=== PATIENT | female | born 1940 | race Caucasian/White ===

== ENCOUNTER → 2016-09-22 | Outpatient (CLI) | payer MEDICARE, BC ==
--- NOTE | 2016-09-23 13:55 | MM ---
Reason for exam: screening (asymptomatic). Last mammogram was performed 1 year and 1 month ago. History: Patient is postmenopausal. Family history of breast cancer in maternal cousin at age 40. Benign right US cyst aspiration of the right breast, August 25, 2005. Benign US right core biopsy of the right breast, August 25, 2005. Excisional biopsy of the left breast, 1993. Excisional biopsy of the left breast, 1968. Cyst aspiration of the right breast. Took estrogen for 12 years beginning at age 55. Physical Findings: A clinical breast exam by your physician is recommended on an annual basis and results should be correlated with mammographic findings. MG 3D Screening Mammo W/Cad Bilateral CC and MLO view(s) were taken. Prior study comparison: August 20, 2015, bilateral MG 3d screening mammo w/cad. August 13, 2014, bilateral MG screening mammo w CAD. Benign calcifications. Previous mammotome biopsy in the right breast. No significant changes when compared with prior studies. ASSESSMENT: Benign, BI-RAD 2 RECOMMENDATION: Routine screening mammogram of both breasts in 1 year.
== END | disposition home or self-care (01) ==
LOC: RADMAMWWP 15:02
PROVIDERS: ATTEND Internal Medicine
DX: Z12.31 Encounter for screening mammogram for malignant neoplasm of breast (principal)
CPT/HCPCS: 77063; G0202

== ENCOUNTER → 2017-10-19 | Outpatient (CLI) | payer MEDICARE, BC ==
--- NOTE | 2017-10-20 14:23 | MM ---
Reason for exam: screening (asymptomatic). Last mammogram was performed 1 year and 1 month ago. History: Patient is postmenopausal. Family history of breast cancer in maternal cousin at age 40. Benign right US cyst aspiration of the right breast, August 25, 2005. Benign US right core biopsy of the right breast, August 25, 2005. Excisional biopsy of the left breast, 1993. Excisional biopsy of the left breast, 1968. Cyst aspiration of the right breast. Took estrogen for 12 years beginning at age 55. Physical Findings: A clinical breast exam by your physician is recommended on an annual basis and results should be correlated with mammographic findings. MG 3D Screening Mammo W/Cad Bilateral CC and MLO view(s) were taken. Prior study comparison: September 22, 2016, bilateral MG 3d screening mammo w/cad. August 20, 2015, bilateral MG 3d screening mammo w/cad. The breast tissue is heterogeneously dense. This may lower the sensitivity of mammography. No suspicious abnormality. Right biopsy marker. Stable post surgical change on the left. No significant changes when compared with prior studies. ASSESSMENT: Benign, BI-RAD 2 RECOMMENDATION: Routine screening mammogram of both breasts in 1 year.
== END | disposition home or self-care (01) ==
LOC: RADMAMWWP 14:48
PROVIDERS: ATTEND Internal Medicine
DX: Z12.31 Encounter for screening mammogram for malignant neoplasm of breast (principal)
CPT/HCPCS: 77063; 77067

== ENCOUNTER 2018-05-12 18:52 | Emergency (ER) | payer MEDICARE, BC ==
--- NOTE | 2018-05-12 20:51 | ED ---
Abdominal Pain HPI <Deacon Sinclair - Last Filed: 05/12/18 23:27> - General Source: patient Mode of arrival: ambulatory Limitations: no limitations <Jessika Robertson - Last Filed: 05/13/18 17:20> - General Chief Complaint: Abdominal Pain Stated Complaint: ABDOMINAL PAIN Time Seen by Provider: 05/12/18 20:48 - History of Present Illness Initial Comments: 77-year-old female with no significant past medical history of present today for chief complaint of left sided abdominal pain. Patient states that for the past 2 months she has had left-sided abdominal pain that is piercing and throbbing she states is all the time however it increases with movement patient states that night she does not seem to notice any symptoms. She denies any nausea, vomiting, diarrhea, melena, hematochezia. Patient denies any bloating, fever, chills, nausea, vomiting, chest pain, shortness of breath, dyspnea on exertion, cough, back pain, hemoptysis, LE edema, orthopnea. Patient states that her last colonoscopy she was told she did not need to come in for another 10 years that it was clean. Pt denies vaginal discharge, bleeding. Pt denies urgency, frequency, dysuria, hematuria. Patient denies history of kidney stones. She states she has been evaluated by her primary care provider who prescribed Flagyl given concern for possible diverticulitis. Patient went to urgent care today for further evaluation and was told to come to emergency department. Upon arrival pt well appearing, there are no sign of distress or discomfort. (Jessika Robertson) - Related Data Home Medications Medication Instructions Recorded Confirmed Brimonidine Tartrate [Alphagan P 1 drop BOTH EYES BID 02/10/16 05/12/18 0.2% Ophth Soln] Atorvastatin [Lipitor] 20 mg PO HS 05/12/18 05/12/18 Previous Rx's Medication Instructions Recorded Dicyclomine [Bentyl] 10 mg PO TID 4 Days #12 capsule 05/12/18 Allergies Allergy/AdvReac Type Severity Reaction Status Date / Time metronidazole [From Flagyl] Allergy Itching Verified 05/12/18 20:30 morphine AdvReac Vomiting Verified 05/12/18 20:30 Sulfa (Sulfonamide AdvReac headache Verified 05/12/18 20:30 Antibiotics) Review of Systems ROS Other: All systems not noted in ROS Statement are negative. <Deacon Sinclair - Last Filed: 05/12/18 23:27> ROS Other: All systems not noted in ROS Statement are negative. Constitutional: Denies: fever, chills Eyes: Denies: eye pain ENT: Denies: ear pain, throat pain Respiratory: Denies: cough, dyspnea, wheezes, hemoptysis Cardiovascular: Denies: chest pain, palpitations, dyspnea on exertion Endocrine: Denies: fatigue Gastrointestinal: Reports: abdominal pain. Denies: nausea, vomiting, diarrhea, constipation, hematemesis, melena, hematochezia Genitourinary: Denies: frequency, hematuria, discharge, abnormal menses Musculoskeletal: Denies: back pain Skin: Denies: rash, lesions Neurological: Denies: headache, weakness, numbness, paresthesias, confusion <Jessika Robertson - Last Filed: 05/13/18 17:20> ROS Statement: Those systems with pertinent positive or pertinent negative responses have been documented in the HPI. Past Medical History Past Medical History: Hyperlipidemia Additional Past Medical History / Comment(s): spinal stenosis, bradycardia History of Any Multi-Drug Resistant Organisms: None Reported Past Surgical History: Appendectomy, Hysterectomy, Tonsillectomy Additional Past Surgical History / Comment(s): varicose vein removal, bilateral cataract extraction, breast lump removal. bilateral carpal tunnel release. Past Anesthesia/Blood Transfusion Reactions: Postoperative Nausea & Vomiting ( PONV) Additional Past Anesthesia/Blood Transfusion Reaction / Comment(s): patient had anesthesia on 02/10/16 for a cataract removal. afterwards became lightheaded, nauseous, and was found to be bradycardic. Past Psychological History: No Psychological Hx Reported Smoking Status: Current every day smoker Past Alcohol Use History: None Reported Past Drug Use History: None Reported - Past Family History Father Family Medical History: AICD/Pacemaker, Congestive Heart Failure (CHF), COPD, Hyperlipidemia, Hypertension Additional Family Medical History / Comment(s): lived until age 95. CABG, pacemaker, seizures, neuropathy Mother Family Medical History: Dementia, Hyperlipidemia, Hypertension, Osteoarthritis ( OA) Additional Family Medical History / Comment(s): lived until age 90. CABG, glaucoma Brother(s) Family Medical History: Hyperlipidemia Sister(s) Family Medical History: CVA/TIA, Hyperlipidemia Additional Family Medical History / Comment(s): loop recorder <Jessika Robertson - Last Filed: 05/13/18 17:20> General Exam <Deacon Sinclair - Last Filed: 05/12/18 23:27> Limitations: no limitations <Jessika Robertson - Last Filed: 05/13/18 17:20> - General Exam Comments Initial Comments: General: The patient is awake and alert, in no distress, and does not appear acutely ill. Eye: Pupils are equal, round and reactive to light, extra-ocular movements are intact. No nystagmus. There is normal conjunctiva bilaterally. No signs of icterus. Ears, nose, mouth and throat: There are moist mucous membranes and no oral lesions. Neck: The neck is supple, there is no tenderness or JVD. Cardiovascular: There is a regular rate and rhythm. No murmur, rub or gallop is appreciated. Respiratory: Lungs are clear to auscultation, respirations are non-labored, breath sounds are equal. No wheezes, stridor, rales, or rhonchi. Gastrointestinal: No noted diaphoresis, jaundice, pallor, protecting postures or squirming. Symmetrical pigmentation of abdomen without signs of inflammation. Scarring noted on lower pelvic region. Striae. Umbilicus mildline, inverted without swelling. No dilated veins. Abdomen contour obese, no noted abdominal distention. No visible masses. No peristalsis, aortic pulsations, or ventral hernia. Bowel sounds audible in all 4 quadrants, unremarkable. No friction rubs or venous hums. No epigastic, hepatic or abdominal bruits. Pt admits to mid discomfort with deep palpation along left side of abdomen. Remainder benign.. Liver edge, not palpable. Spleen edge, right and left kidney not palpable. Superior bladder margin non-tender. Special Testing: Negative Bevington, Rovsing, McBurney, Loren, cutaneous hyperesthesia. Iliopsoas and obturator tests negative bilaterally. Negative Heel Jar test/ nidia sign. No CVA tenderness. [Digital rectal exam deferred.] Negative mayo turners or cullens sign Musculoskeletal: Normal ROM, no tenderness. Strength 5/5. Sensation intact. Radial pulses equal bilaterally 2+. Neurological: A&O x 3. CN II-XII intact, There are no obvious motor or sensory deficits. Coordination appears grossly intact. Speech is normal. Skin: Skin is warm and dry and no rashes or lesions are noted. Psychiatric: Cooperative, appropriate mood & affect, normal judgment. (Jessika Robertson) Course <Deacon Sinclair - Last Filed: 05/12/18 23:27> <Jessika Robertson - Last Filed: 05/13/18 17:20> Vital Signs 05/12/18 05/12/18 05/12/18 19:13 21:34 22:00 Temperature 98.1 F Pulse Rate 105 H 99 72 Respiratory 20 18 18 Rate Blood Pressure 137/66 158/81 138/74 O2 Sat by Pulse 95 95 95 Oximetry 05/12/18 23:46 Temperature 97.9 F Pulse Rate 96 Respiratory 18 Rate Blood Pressure 156/83 O2 Sat by Pulse 95 Oximetry - Reevaluation(s) Reevaluation #1: 05/12/18 23:27 PA supervision: I proceeded [id number] evaluation the patient she is moving complaining of left lower quadrant and left flank anterior abdominal pain for the past 2 months. It occurs later in the day usually. Not really associated with food some movement makes it worse. She's had no dysuria hematuria no constipation or diarrhea. She has a prior history of hysterectomy and appendectomy this was many years ago. The workup thus far is negative for any acute processes. Spastic colon is considered. Patient will be discharged and follow-up with her doctor. Her last colonoscopy was 9 years ago she is pending one in the not so distant future. She is return when necessary. I do agree with the current assessment and plan. (Deacon Sinclair) Medical Decision Making - Lab Data Result diagrams: 05/12/18 21:25 05/12/18 21:25 <Deacon Sinclair - Last Filed: 05/12/18 23:27> - Lab Data Result diagrams: 05/12/18 21:25 05/12/18 21:25 <Jessika Robertson - Last Filed: 05/13/18 17:20> - Medical Decision Making Laboratory studies unremarkable. Abdominal exam revealed mild discomfort however no signs of distress. Given age ACS labs ordered, negative at this time. EKG no new concerning findings. CT abdomen pelvic (-). CXR (-). Patient appears well. Given length of the gout pain 2 months I do not feel this acute intra-abdominal process. I had patient evaluated in person by attending physician. He agrees the patient is stable for discharge. He recommended Benyl for possible motility disorder. Pt is agreeable with plan and discharge. We recommended further outpatient f/u for abdominal pain including possible. Gastroenterology referral from primary provider. Patient agreeable with plan, states she is comfortable with discharge. Patient denies any pain during stay. Patient was discharged in stable condition appearing well. All return parameters discussed at length with patient, who verbalized understanding. All questions answered to the best of my ability prior to discharge. (Jessika Robertson) - Lab Data Lab Results 05/12/18 05/12/18 05/12/18 Range/Units 21:25 21:25 21:25 WBC 4.8 (3.8-10.6) k/uL RBC 4.76 (3.80-5.40) m/uL Hgb 14.1 (11.4-16.0) gm/dL Hct 41.8 (34.0-46.0) % MCV 87.8 (80.0-100.0) fL MCH 29.7 (25.0-35.0) pg MCHC 33.8 (31.0-37.0) g/dL RDW 13.2 (11.5-15.5) % Plt Count 201 (150-450) k/uL Neutrophils % 40 % Lymphocytes % 46 % Monocytes % 8 % Eosinophils % 2 % Basophils % 1 % Neutrophils # 1.9 (1.3-7.7) k/uL Lymphocytes # 2.2 (1.0-4.8) k/uL Monocytes # 0.4 (0-1.0) k/uL Eosinophils # 0.1 (0-0.7) k/uL Basophils # 0.0 (0-0.2) k/uL Sodium 142 (137-145) mmol/L Potassium 4.3 (3.5-5.1) mmol/L Chloride 110 H (98-107) mmol/L Carbon Dioxide 24 (22-30) mmol/L Anion Gap 8 mmol/L BUN 18 H (7-17) mg/dL Creatinine 0.75 (0.52-1.04) mg/dL Est GFR (CKD-EPI)AfAm 88 (>60 ml/min/1.73 sqM) Est GFR (CKD-EPI)NonAf 77 (>60 ml/min/1.73 sqM) Glucose 98 (74-99) mg/dL Plasma Lactic Acid Yash 1.1 (0.7-2.0) mmol/L Calcium 9.3 (8.4-10.2) mg/dL Total Bilirubin 0.2 (0.2-1.3) mg/dL AST 49 H (14-36) U/L ALT 53 H (9-52) U/L Alkaline Phosphatase 97 (38-126) U/L Troponin I (0.000-0.034) ng/mL Total Protein 6.8 (6.3-8.2) g/dL Albumin 3.9 (3.5-5.0) g/dL Amylase 63 (30-110) U/L Lipase 128 (23-300) U/L Urine Color Urine Appearance (Clear) Urine pH (5.0-8.0) Ur Specific Otley (1.001-1.035) Urine Protein (Negative) Urine Glucose (UA) (Negative) Urine Ketones (Negative) Urine Blood (Negative) Urine Nitrite (Negative) Urine Bilirubin (Negative) Urine Urobilinogen (<2.0) mg/dL Ur Leukocyte Esterase (Negative) Urine RBC (0-5) /hpf Urine WBC (0-5) /hpf Ur Squamous Epith Cells (0-4) /hpf Hyaline Casts (0-2) /lpf Urine Mucus (None) /hpf 05/12/18 05/12/18 Range/Units 21:25 21:25 WBC (3.8-10.6) k/uL RBC (3.80-5.40) m/uL Hgb (11.4-16.0) gm/dL Hct (34.0-46.0) % MCV (80.0-100.0) fL MCH (25.0-35.0) pg MCHC (31.0-37.0) g/dL RDW (11.5-15.5) % Plt Count (150-450) k/uL Neutrophils % % Lymphocytes % % Monocytes % % Eosinophils % % Basophils % % Neutrophils # (1.3-7.7) k/uL Lymphocytes # (1.0-4.8) k/uL Monocytes # (0-1.0) k/uL Eosinophils # (0-0.7) k/uL Basophils # (0-0.2) k/uL Sodium (137-145) mmol/L Potassium (3.5-5.1) mmol/L Chloride (98-107) mmol/L Carbon Dioxide (22-30) mmol/L Anion Gap mmol/L BUN (7-17) mg/dL Creatinine (0.52-1.04) mg/dL Est GFR (CKD-EPI)AfAm (>60 ml/min/1.73 sqM) Est GFR (CKD-EPI)NonAf (>60 ml/min/1.73 sqM) Glucose (74-99) mg/dL Plasma Lactic Acid Yash (0.7-2.0) mmol/L Calcium (8.4-10.2) mg/dL Total Bilirubin (0.2-1.3) mg/dL AST (14-36) U/L ALT (9-52) U/L Alkaline Phosphatase (38-126) U/L Troponin I <0.012 (0.000-0.034) ng/mL Total Protein (6.3-8.2) g/dL Albumin (3.5-5.0) g/dL Amylase (30-110) U/L Lipase (23-300) U/L Urine Color Yellow Urine Appearance Cloudy H (Clear) Urine pH 5.5 (5.0-8.0) Ur Specific Otley 1.025 (1.001-1.035) Urine Protein Trace H (Negative) Urine Glucose (UA) Negative (Negative) Urine Ketones Trace H (Negative) Urine Blood Small H (Negative) Urine Nitrite Negative (Negative) Urine Bilirubin Negative (Negative) Urine Urobilinogen 2.0 (<2.0) mg/dL Ur Leukocyte Esterase Trace H (Negative) Urine RBC 7 H (0-5) /hpf Urine WBC 2 (0-5) /hpf Ur Squamous Epith Cells 2 (0-4) /hpf Hyaline Casts 11 H (0-2) /lpf Urine Mucus Few H (None) /hpf - EKG Data EKG Comments: Ventricular rate 64 bpm, SC interval 220 ms, QRS religious 122 ms QT/QTC 396/ 408 ms this is sinus rhythm with with sinus arrhythmia noted first-degree AV block. Noted left atrial enlargement, there is left axis deviation and noted left bundle branch block. EKG compared to most recent previous, no significant changes. EKG evaluated by myself as well as Dr. Deacon Sinclair. No ST elevation or depression concerning for acute green party syndrome at this time. (Jessika Robertson) Disposition <Deacon Sinclair - Last Filed: 05/12/18 23:27> Is patient prescribed a controlled substance at d/c from ED?: No Time of Disposition: 23:22 <Jessika Robertson - Last Filed: 05/13/18 17:20> Clinical Impression: Abdominal pain Disposition: HOME SELF-CARE Condition: Good Instructions: Abdominal Pain (ED) Additional Instructions: Please use medication as discussed. Please follow-up with family doctor in the next 2 days.. Please return to emergency room if the symptoms increase or worsen or for any other concerns. Prescriptions: Dicyclomine [Bentyl] 10 mg PO TID 4 Days #12 capsule Referrals: Mayur Khan MD [Primary Care Provider] - 1-2 days
[2018-05-12] MEDS ORDERED: SODIUM CHLORIDE 0.9% 1,000 ML IV SCH (21:00)
[2018-05-12 21:36] VITALS: RESP 18
[2018-05-12 21:45] LABS: Basophils % (A) 1 %; Eosinophils # (A) 0.1 k/uL (0-0.7); Eosinophils % (A) 2 %; HCT 41.8 % (34.0-46.0); HGB 14.1 gm/dL (11.4-16.0); Lymphocytes # (A) 2.2 k/uL (1.0-4.8); Lymphocytes % (A) 46 %; MCH 29.7 pg (25.0-35.0); MCHC 33.8 g/dL (31.0-37.0); MCV 87.8 fL (80.0-100.0); Mean Platelet Volume 7.5; Monocytes # (A) 0.4 k/uL (0-1.0); Monocytes % (A) 8 %; Neutrophils # (A) 1.9 k/uL (1.3-7.7); Neutrophils % (A) 40 %; Platelet Count 201 k/uL (150-450); RBC 4.76 m/uL (3.80-5.40); RDW 13.2 % (11.5-15.5); WBC 4.8 k/uL (3.8-10.6)
[2018-05-12 21:46] LABS: Appearance,Urine Cloudy (Clear); Bilirubin,Urine Negative (Negative); Blood,Urine Small (Negative); Color,Urine Yellow; Glucose,Urine (UA) Negative (Negative); Hyaline Casts,Urine 11 /lpf (0-2); Ketones,Urine Trace (Negative); Leukocyte Esterase,Urine Trace (Negative); Mucus,Urine Few /hpf; Nitrite,Urine Negative (Negative); PH, Urine 5.5 (5.0-8.0); Protein,Urine Trace (Negative); RBC,Urine 7 /hpf (0-5); Specific Gravity,Urine 1.025 (1.001-1.035); Squamous Epithelial Cell,Urine 2 /hpf (0-4)
[2018-05-12 21:52] LABS: Albumin 3.9 g/dL (3.5-5.0); Calcium 9.3 mg/dL (8.4-10.2); Potassium 4.3 mmol/L (3.5-5.1); Total Bilirubin 0.2 mg/dL (0.2-1.3); Total Protein 6.8 g/dL (6.3-8.2)
--- NOTE | 2018-05-12 22:00 | XR ---
EXAMINATION TYPE: XR chest 2V DATE OF EXAM: 05/12/2018 COMPARISON: 02/10/2016 HISTORY: Cough TECHNIQUE: Frontal and lateral views of the chest are obtained. FINDINGS: There is no heart failure nor confluent pneumonic infiltrate. Costophrenic angles are lamine r. There are chest leads. Bony thorax is intact. IMPRESSION: No active cardiopulmonary disease. No change.
--- NOTE | 2018-05-12 22:30 | CT ---
EXAMINATION TYPE: CT abdomen pelvis w con DATE OF EXAM: 05/12/2018 COMPARISON: 01/30/2011 HISTORY: Lower abdominal pain x few months. CT DLP: 551.6 mGycm Automated exposure control for dose reduction was used. TECHNIQUE: Helical acquisition of images was performed from the lung bases through the pelvis. CONTRAST: Performed without Oral Contrast and with IV Contrast, patient injected with 100ml mL of Isovue 300. FINDINGS: Lung bases are clear. There is no pleural effusion. Heart is enlarged. There is no pericardial effusi on. Liver spleen pancreas appear normal. Bile ducts are not dilated. Gallbladder appears normal. Stomach appears normal. There is no adrenal mass. Kidneys show satisfactory contrast opacification. T here is no hydronephrosis. There are right renal cortical cysts that measure 2 cm. There is no retrop eritoneal adenopathy. Abdominal aorta is atheromatous. Bladder distends smoothly. There is no inguina l hernia. There is no free fluid in the pelvis. I see no mesenteric edema or adenopathy. There is no evidence of a bowel obstruction. There are multi ple sigmoid diverticula. There is no sign of diverticulitis. There are spondylotic changes in the lum bar spine. Appendix is not seen. There is no sign of appendicitis. IMPRESSION: NO SIGN OF ACUTE ABDOMEN AND PELVIS. ENLARGED HEART. ATHEROSCLEROTIC VASCULAR DISEASE. MILD SIGMOID D IVERTICULOSIS.
[2018-05-12 23:47] VITALS: BP 156/83; PULSE 96; TEMP 97.9
== END 2018-05-12 23:47 | disposition home or self-care (01) ==
LOC: EC 18:52
DX: R10.9 Unspecified abdominal pain (principal); L90.5 Scar conditions and fibrosis of skin; I44.0 Atrioventricular block, first degree; I44.7 Left bundle-branch block, unspecified; I49.8 Other specified cardiac arrhythmias; E78.5 Hyperlipidemia, unspecified; F17.200 Nicotine dependence, unspecified, uncomplicated; Z79.899 Other long term (current) drug therapy; Z88.1 Allergy status to other antibiotic agents; Z88.5 Allergy status to narcotic agent; Z88.2 Allergy status to sulfonamides; Z90.49 Acquired absence of other specified parts of digestive tract; Z98.42 Cataract extraction status, left eye; Z98.41 Cataract extraction status, right eye
CPT/HCPCS: 36415; 93005; 80053; 82150; 83605; 83690; 84484; 85025; 81001; 71046; 74177; 99285; Q9967

== ENCOUNTER → 2018-10-27 | Outpatient (CLI) | payer MEDICARE ==
--- NOTE | 2018-10-31 09:21 | MM ---
Reason for exam: screening (asymptomatic). Last mammogram was performed 1 year ago. History: Patient is postmenopausal. Family history of breast cancer in maternal cousin at age 40. Benign right US cyst aspiration of the right breast, August 25, 2005. Benign US right core biopsy of the right breast, August 25, 2005. Excisional biopsy of the left breast, 1993. Excisional biopsy of the left breast, 1968. Cyst aspiration of the right breast. Took estrogen for 12 years beginning at age 55. Physical Findings: A clinical breast exam by your physician is recommended on an annual basis and results should be correlated with mammographic findings. MG 3D Screening Mammo W/Cad Bilateral CC and MLO view(s) were taken. Prior study comparison: October 19, 2017, bilateral MG 3d screening mammo w/cad. September 22, 2016, bilateral MG 3d screening mammo w/cad. The breast tissue is heterogeneously dense. This may lower the sensitivity of mammography. Scattered asymmetric densities are unchanged. No significant changes when compared with prior studies. ASSESSMENT: Negative, BI-RAD 1 RECOMMENDATION: Routine screening mammogram of both breasts in 1 year.
== END | disposition home or self-care (01) ==
LOC: RADMAMWWP 13:17
PROVIDERS: ATTEND Internal Medicine
DX: Z12.31 Encounter for screening mammogram for malignant neoplasm of breast (principal)
CPT/HCPCS: 77063; 77067

== ENCOUNTER → 2018-12-22 | Outpatient (CLI) | payer MEDICARE ==
[2018-12-22 17:12] LABS: African American GFR (CKD) >90 (>60 ml/min/1.73 sqM); Blood Urea Nitrogen 19 mg/dL (7-17)
--- NOTE | 2018-12-22 22:03 | CT ---
EXAMINATION TYPE: CT soft tissue neck w con DATE OF EXAM: 12/22/2018 HISTORY: Pt concerned over palpable mass near RT sternoclavicular region. Marked with BB COMPARISON: NONE CT DLP: 397 mGycm. Automated Exposure Control for Dose Reduction was Utilized. TECHNIQUE: CT scan of the neck is performed with IV Contrast, patient injected with 100 mL of Isovue 300, axial images are obtained, coronal and sagittal reformatted images are reviewed. FINDINGS: Area of patient concern marked axial image 69 just above proximal clavicle junction with sternum. Dis shade sternocleidomastoid mastoid muscle felt within normal limits without suspicious abnormality sharron red to opposite left side on coronal image 41. There is however asymmetric soft tissue thickening bel ow this versus opposite left side without bony destruction measuring 2.2 x 1.4 cm axial image 73. Thi s correlates with coronal image 41. Just above this thyroid gland is within normal limits. Airway is patent. There is mild to moderate emphysematous change visualized upper lungs. Mild plaque bilateral carotid bulb level without significant stenosis. Dominant left vertebral artery incidentally noted. No greater than 1 cm mass or adenopathy. Scattered subcentimeter lymph nodes throughout the neck bila terally. IMPRESSION: Asymmetric soft tissue near site of palpable abnormality along central margin of the righ t clavicle could reflect product of chronic inflammation or strain injury. No suspicious cortical yeni truction to suggest more sinister etiology. No suspicious mass or adenopathy otherwise identified. If this lesion continues to enlarge or become painful further imaging may be beneficial.
== END | disposition home or self-care (01) ==
LOC: RADCTMAIN 16:22
PROVIDERS: ATTEND Internal Medicine
DX: R22.1 Localized swelling, mass and lump, neck (principal)
CPT/HCPCS: 82565; 84520; 70491; 36415; Q9967

== ENCOUNTER → 2019-12-14 | Outpatient (CLI) | payer MEDICARE ==
--- NOTE | 2019-12-15 14:28 | MM ---
Reason for exam: screening (asymptomatic). Last mammogram was performed 1 year and 2 months ago. History: Patient is postmenopausal. Family history of breast cancer in maternal cousin at age 40. Benign right US cyst aspiration of the right breast, August 25, 2005. Benign US right core biopsy of the right breast, August 25, 2005. Excisional biopsy of the left breast, 1993. Excisional biopsy of the left breast, 1968. Cyst aspiration of the right breast. Took estrogen for 12 years beginning at age 55. Physical Findings: A clinical breast exam by your physician is recommended on an annual basis and results should be correlated with mammographic findings. MG 3D Screening Mammo W/Cad Bilateral CC and MLO view(s) were taken. Prior study comparison: October 27, 2018, bilateral MG 3d screening mammo w/cad. October 19, 2017, bilateral MG 3d screening mammo w/cad. The breast tissue is heterogeneously dense. This may lower the sensitivity of mammography. There is no discrete abnormality. No significant changes when compared with prior studies. ASSESSMENT: Negative, BI-RAD 1 RECOMMENDATION: Routine screening mammogram of both breasts in 1 year.
== END | disposition home or self-care (01) ==
LOC: RADMAMWWP 14:55
PROVIDERS: ATTEND Internal Medicine
DX: Z12.31 Encounter for screening mammogram for malignant neoplasm of breast (principal)
CPT/HCPCS: 77063; 77067

== ENCOUNTER 2020-04-22 12:56 | Emergency (ER) | payer MEDICARE ==
[2020-04-22 13:05] VITALS: PULSE 69; TEMP 98.5
[2020-04-22] MEDS ORDERED: MECLIZINE 12.5 MG TAB PO STA (14:23)
[2020-04-22] MEDS ORDERED: SODIUM CHLORIDE 0.9% 1,000 ML IV STA (14:23)
[2020-04-22] MEDS ORDERED: ONDANSETRON 4 MG/2 ML VIAL IVP STA (14:23)
--- NOTE | 2020-04-22 14:26 | ED ---
General Adult HPI - General Chief complaint: Nausea/Vomiting/Diarrhea Stated complaint: vomiting, elevated BP, weakness Source: patient Mode of arrival: wheelchair Limitations: no limitations - History of Present Illness Initial comments: Patient is an 79-year-old female who presents to the emergency department with reported nausea, vomiting and dizziness. Patient states she woke up this morning with sudden onset of room spinning sensation. Does admit to one history of similar in the past. Denies any head trauma. States she attempted to ambulate however was too dizzy and felt as if she kept falling. Denies any unilateral numbness or weakness. No headaches or visual changes. No speech difficulty. Denies any fevers or chills. No neck pain or stiffness. Did not t anya any medications for her symptoms. Denies any hearing changes. No previous history of strokes. Patient has been nauseated with a few episodes of nonbilious, nonbloody vomiting. No other alleviating, precipitating or modifying factors - Related Data Home Medications Medication Instructions Recorded Confirmed Atorvastatin [Lipitor] 20 mg PO HS 05/12/18 04/22/20 Brimonidine Tartrate [Alphagan P 1 drops BOTH EYES BID 04/22/20 04/22/20 0.15% Ophth Soln] Previous Rx's Medication Instructions Recorded Meclizine [Antivert] 25 mg PO TID PRN #12 tab 04/22/20 Allergies Allergy/AdvReac Type Severity Reaction Status Date / Time metronidazole [From Flagyl] Allergy Itching Verified 04/22/20 14:56 morphine AdvReac Vomiting Verified 04/22/20 14:56 Sulfa (Sulfonamide AdvReac headache Verified 04/22/20 14:56 Antibiotics) Review of Systems ROS Statement: Those systems with pertinent positive or pertinent negative responses have been documented in the HPI. ROS Other: All systems not noted in ROS Statement are negative. Past Medical History Past Medical History: Hyperlipidemia Additional Past Medical History / Comment(s): spinal stenosis, bradycardia History of Any Multi-Drug Resistant Organisms: None Reported Past Surgical History: Appendectomy, Hysterectomy, Tonsillectomy Additional Past Surgical History / Comment(s): varicose vein removal, bilateral cataract extraction, breast lump removal. bilateral carpal tunnel release. Past Anesthesia/Blood Transfusion Reactions: Postoperative Nausea & Vomiting (PONV) Additional Past Anesthesia/Blood Transfusion Reaction / Comment(s): patient had anesthesia on 02/10/16 for a cataract removal. afterwards became lightheaded, nauseous, and was found to be bradycardic. Past Psychological History: No Psychological Hx Reported Smoking Status: Current every day smoker Past Alcohol Use History: Rare Past Drug Use History: None Reported - Past Family History Father Family Medical History: AICD/Pacemaker, Congestive Heart Failure (CHF), COPD, Hyperlipidemia, Hypertension Additional Family Medical History / Comment(s): lived until age 95. CABG, pacemaker, seizures, neuropathy Mother Family Medical History: Dementia, Hyperlipidemia, Hypertension, Osteoarthritis (OA) Additional Family Medical History / Comment(s): lived until age 90. CABG, glaucoma Brother(s) Family Medical History: Hyperlipidemia Sister(s) Family Medical History: CVA/TIA, Hyperlipidemia Additional Family Medical History / Comment(s): loop recorder General Exam Limitations: no limitations Course Vital Signs 04/22/20 04/22/20 13:01 16:40 Temperature 98.5 F Pulse Rate 69 69 Respiratory 18 20 Rate Blood Pressure 181/86 139/68 O2 Sat by Pulse 100 99 Oximetry EKG Findings - EKG Comments: EKG Findings:: EKG demonstrates sinus bradycardia with a ventricular rate of 52. HI interval 262. QRS 130. QTC of 453. No acute ST segment elevations or depressions. Right bundle-branch block present Medical Decision Making - Medical Decision Making Upon arrival patient is placed into room 9. A thorough history and physical exam was performed. 12-lead EKG was performed. Laboratory studies were conducted. Patient was given 4 mg of Zofran and 25 mg of meclizine. Lab studies remarkable for a lactic acid of 2.1. Patient is reevaluated and reports to marked improvement in her symptoms. She is able to get up and ambulate. Patient requesting to go home at this time. Patient will be given a prescription for meclizine to take at home. She needs to follow up with primary care doctor in 2-4 days. Return to the emergency department with worsening symptoms. She was discharged home in stable condition - Lab Data Result diagrams: 04/22/20 14:27 04/22/20 14:27 Lab Results 04/22/20 04/22/20 04/22/20 Range/Units 14:27 14:27 14:27 WBC 5.5 (3.8-10.6) k/uL RBC 4.52 (3.80-5.40) m/uL Hgb 14.7 (11.4-16.0) gm/dL Hct 42.2 (34.0-46.0) % MCV 93.3 (80.0-100.0) fL MCH 32.4 (25.0-35.0) pg MCHC 34.8 (31.0-37.0) g/dL RDW 12.6 (11.5-15.5) % Plt Count 241 (150-450) k/uL MPV 7.8 Neutrophils % 50 % Lymphocytes % 38 % Monocytes % 6 % Eosinophils % 3 % Basophils % 1 % Neutrophils # 2.7 (1.3-7.7) k/uL Lymphocytes # 2.1 (1.0-4.8) k/uL Monocytes # 0.3 (0-1.0) k/uL Eosinophils # 0.2 (0-0.7) k/uL Basophils # 0.1 (0-0.2) k/uL PT 10.1 (9.0-12.0) sec INR 1.0 (<1.2) Sodium 139 (137-145) mmol/L Potassium 4.6 (3.5-5.1) mmol/L Chloride 109 H (98-107) mmol/L Carbon Dioxide 24 (22-30) mmol/L Anion Gap 6 mmol/L BUN 16 (7-17) mg/dL Creatinine 0.65 (0.52-1.04) mg/dL Est GFR (CKD-EPI)AfAm >90 (>60 ml/min/1.73 sqM) Est GFR (CKD-EPI)NonAf 84 (>60 ml/min/1.73 sqM) Glucose 115 H (74-99) mg/dL Lactic Ac Sepsis Rflx Plasma Lactic Acid Yash (0.7-2.0) mmol/L Calcium 9.2 (8.4-10.2) mg/dL Total Bilirubin 0.7 (0.2-1.3) mg/dL AST 25 (14-36) U/L ALT 12 (4-34) U/L Alkaline Phosphatase 89 (38-126) U/L Troponin I (0.000-0.034) ng/mL Total Protein 7.2 (6.3-8.2) g/dL Albumin 4.3 (3.5-5.0) g/dL Urine Color Urine Appearance (Clear) Urine pH (5.0-8.0) Ur Specific Gilman (1.001-1.035) Urine Protein (Negative) Urine Glucose (UA) (Negative) Urine Ketones (Negative) Urine Blood (Negative) Urine Nitrite (Negative) Urine Bilirubin (Negative) Urine Urobilinogen (<2.0) mg/dL Ur Leukocyte Esterase (Negative) 04/22/20 04/22/20 04/22/20 Range/Units 14:27 14:27 14:50 WBC (3.8-10.6) k/uL RBC (3.80-5.40) m/uL Hgb (11.4-16.0) gm/dL Hct (34.0-46.0) % MCV (80.0-100.0) fL MCH (25.0-35.0) pg MCHC (31.0-37.0) g/dL RDW (11.5-15.5) % Plt Count (150-450) k/uL MPV Neutrophils % % Lymphocytes % % Monocytes % % Eosinophils % % Basophils % % Neutrophils # (1.3-7.7) k/uL Lymphocytes # (1.0-4.8) k/uL Monocytes # (0-1.0) k/uL Eosinophils # (0-0.7) k/uL Basophils # (0-0.2) k/uL PT (9.0-12.0) sec INR (<1.2) Sodium (137-145) mmol/L Potassium (3.5-5.1) mmol/L Chloride (98-107) mmol/L Carbon Dioxide (22-30) mmol/L Anion Gap mmol/L BUN (7-17) mg/dL Creatinine (0.52-1.04) mg/dL Est GFR (CKD-EPI)AfAm (>60 ml/min/1.73 sqM) Est GFR (CKD-EPI)NonAf (>60 ml/min/1.73 sqM) Glucose (74-99) mg/dL Lactic Ac Sepsis Rflx Plasma Lactic Acid Yash 2.1 H* (0.7-2.0) mmol/L Calcium (8.4-10.2) mg/dL Total Bilirubin (0.2-1.3) mg/dL AST (14-36) U/L ALT (4-34) U/L Alkaline Phosphatase (38-126) U/L Troponin I <0.012 (0.000-0.034) ng/mL Total Protein (6.3-8.2) g/dL Albumin (3.5-5.0) g/dL Urine Color Yellow Urine Appearance Clear (Clear) Urine pH 6.5 (5.0-8.0) Ur Specific Gilman 1.019 (1.001-1.035) Urine Protein Negative (Negative) Urine Glucose (UA) Negative (Negative) Urine Ketones Negative (Negative) Urine Blood Negative (Negative) Urine Nitrite Negative (Negative) Urine Bilirubin Negative (Negative) Urine Urobilinogen <2.0 (<2.0) mg/dL Ur Leukocyte Esterase Negative (Negative) 04/22/20 Range/Units 15:07 WBC (3.8-10.6) k/uL RBC (3.80-5.40) m/uL Hgb (11.4-16.0) gm/dL Hct (34.0-46.0) % MCV (80.0-100.0) fL MCH (25.0-35.0) pg MCHC (31.0-37.0) g/dL RDW (11.5-15.5) % Plt Count (150-450) k/uL MPV Neutrophils % % Lymphocytes % % Monocytes % % Eosinophils % % Basophils % % Neutrophils # (1.3-7.7) k/uL Lymphocytes # (1.0-4.8) k/uL Monocytes # (0-1.0) k/uL Eosinophils # (0-0.7) k/uL Basophils # (0-0.2) k/uL PT (9.0-12.0) sec INR (<1.2) Sodium (137-145) mmol/L Potassium (3.5-5.1) mmol/L Chloride (98-107) mmol/L Carbon Dioxide (22-30) mmol/L Anion Gap mmol/L BUN (7-17) mg/dL Creatinine (0.52-1.04) mg/dL Est GFR (CKD-EPI)AfAm (>60 ml/min/1.73 sqM) Est GFR (CKD-EPI)NonAf (>60 ml/min/1.73 sqM) Glucose (74-99) mg/dL Lactic Ac Sepsis Rflx Y Plasma Lactic Acid Yash (0.7-2.0) mmol/L Calcium (8.4-10.2) mg/dL Total Bilirubin (0.2-1.3) mg/dL AST (14-36) U/L ALT (4-34) U/L Alkaline Phosphatase (38-126) U/L Troponin I (0.000-0.034) ng/mL Total Protein (6.3-8.2) g/dL Albumin (3.5-5.0) g/dL Urine Color Urine Appearance (Clear) Urine pH (5.0-8.0) Ur Specific Gilman (1.001-1.035) Urine Protein (Negative) Urine Glucose (UA) (Negative) Urine Ketones (Negative) Urine Blood (Negative) Urine Nitrite (Negative) Urine Bilirubin (Negative) Urine Urobilinogen (<2.0) mg/dL Ur Leukocyte Esterase (Negative) Disposition Clinical Impression: Vertigo Disposition: HOME SELF-CARE Condition: Stable Instructions (If sedation given, give patient instructions): Vertigo (ED) Additional Instructions: Please follow up with your PCP. Return to the ED for any new or worsening symptoms. Prescriptions: Meclizine [Antivert] 25 mg PO TID PRN #12 tab PRN Reason: Vertigo Is patient prescribed a controlled substance at d/c from ED?: No Referrals: Carolyn Rodriguez NPC [Primary Care Provider] - 1-2 days Time of Disposition: 16:25
[2020-04-22 14:45] LABS: Basophils # (A) 0.1 k/uL (0-0.2); Basophils % (A) 1 %; Eosinophils # (A) 0.2 k/uL (0-0.7); Eosinophils % (A) 3 %; HCT 42.2 % (34.0-46.0); HGB 14.7 gm/dL (11.4-16.0); Lymphocytes # (A) 2.1 k/uL (1.0-4.8); Lymphocytes % (A) 38 %; MCH 32.4 pg (25.0-35.0); MCHC 34.8 g/dL (31.0-37.0); MCV 93.3 fL (80.0-100.0); Mean Platelet Volume 7.8; Monocytes # (A) 0.3 k/uL (0-1.0); Monocytes % (A) 6 %; Neutrophils # (A) 2.7 k/uL (1.3-7.7); Neutrophils % (A) 50 %; Platelet Count 241 k/uL (150-450); RBC 4.52 m/uL (3.80-5.40); RDW 12.6 % (11.5-15.5); WBC 5.5 k/uL (3.8-10.6)
[2020-04-22 14:54] LABS: Prothrombin Time 10.1 sec (9.0-12.0)
[2020-04-22 15:03] LABS: ALT 12 U/L (4-34); AST 25 U/L (14-36); African American GFR (CKD) >90 (>60 ml/min/1.73 sqM); Albumin 4.3 g/dL (3.5-5.0); Alkaline Phosphatase 89 U/L (38-126); Anion Gap 6 mmol/L; Blood Urea Nitrogen 16 mg/dL (7-17); Calcium 9.2 mg/dL (8.4-10.2); Carbon Dioxide 24 mmol/L (22-30); Chloride 109 mmol/L (98-107); Glucose 115 mg/dL (74-99); Non-African American GFR(CKD) 84 (>60 ml/min/1.73 sqM); Potassium 4.6 mmol/L (3.5-5.1); Sodium 139 mmol/L (137-145); Total Bilirubin 0.7 mg/dL (0.2-1.3); Total Protein 7.2 g/dL (6.3-8.2)
[2020-04-22 15:16] LABS: Appearance,Urine Clear (Clear); Bilirubin,Urine Negative (Negative); Blood,Urine Negative (Negative); Color,Urine Yellow; Glucose,Urine (UA) Negative (Negative); Ketones,Urine Negative (Negative); Leukocyte Esterase,Urine Negative (Negative); Nitrite,Urine Negative (Negative); PH, Urine 6.5 (5.0-8.0); Protein,Urine Negative (Negative); Specific Gravity,Urine 1.019 (1.001-1.035); Urobilinogen,Urine <2.0 mg/dL (<2.0)
[2020-04-22 16:41] VITALS: BP 139/68; RESP 20
== END 2020-04-22 16:43 | disposition home or self-care (01) ==
LOC: EC 12:56
DX: R42 Dizziness and giddiness (principal); E78.5 Hyperlipidemia, unspecified; F17.200 Nicotine dependence, unspecified, uncomplicated; Z79.899 Other long term (current) drug therapy; Z88.2 Allergy status to sulfonamides; Z88.5 Allergy status to narcotic agent; Z88.1 Allergy status to other antibiotic agents; Z90.89 Acquired absence of other organs
CPT/HCPCS: 36415; 93005; 80053; 83605; 84484; 85025; 85610; 81003; 99284; 96374; 96361; J2405

== ENCOUNTER → 2022-09-14 | Outpatient (CLI) | payer MEDICARE ==
--- NOTE | 2022-09-15 19:23 | MM ---
Reason for Exam: Screening (asymptomatic). Last mammogram was performed 2 year(s) and 10 month(s) ago. Patient History: Menarche at age 11. First Full-Term at age 16. Left ovary removed at age 55. Right ovary removed at age 55. Hysterectomy at age 55. Postmenopausal. Estrogen for 12 years from age 55 until age 68. Cyst Aspiration on the Right side. 1993, Excisional Biopsy on the Left side. 1968, Excisional Biopsy on the Left side. 08/25/2005, Benign Cyst Aspiration on the right side. 08/25/2005, Benign Core Biopsy on the right side. Maternal cousin had breast cancer, age 40. Risk Values: Chery 5 year model risk: 1.7%. NCI Lifetime model risk: 2.3%. Prior Study Comparison: 10/19/2017 Bilateral Screening Mammogram, [facility]. 10/27/2018 Bilateral Screening Mammogram, [facility]. 12/14/2019 Bilateral Screening Mammogram, [facility]. Tissue Density: The breast tissue is heterogeneously dense. This may lower the sensitivity of mammography. Findings: Analyzed By CAD. Some regional punctate microcalcifications in both sides are unchanged. There is no suspicious group of microcalcifications or new suspicious mass in either breast. Overall Assessment: Benign, BI-RAD 2 Management: Screening Mammogram of both breasts in 1 year. . Patient should continue monthly self-breast exams. A clinical breast exam by your physician is recommended on an annual basis. This exam should not preclude additional follow-up of suspicious palpable abnormalities. Note on Chery scores and lifetime risk: 1. A Chery score greater than 3% is considered moderate risk. If this is the case, consider specialist referral to assess eligibility for a risk reducing agent. 2. If overall lifetime risk for the development of breast cancer is 20% or higher, the patient may qualify for future screening with alternating mammogram and breast MRI. Electronically signed and approved by: Adelaida Golden M.D. Radiologist
== END | disposition home or self-care (01) ==
LOC: RADMAMWWP 14:30
PROVIDERS: ATTEND Family Medicine
DX: Z12.31 Encounter for screening mammogram for malignant neoplasm of breast (principal); Z78.0 Asymptomatic menopausal state; Z80.3 Family history of malignant neoplasm of breast
CPT/HCPCS: 77063; 77067

== ENCOUNTER → 2024-01-24 | Outpatient (CLI) | payer MEDICARE ==
[2024-01-24 16:37] LABS: Partial Thromboplastin Time 27.8 sec (22.0-30.0); Prothrombin Time 10.7 sec (10.0-12.5)
[2024-01-24 18:19] LABS: MCH 30.8 pg (27.0-32.0); MCHC 33.3 g/dL (32.0-37.0); MCV 92.4 FL (80.0-97.0); NRBC Per 100 WBC 0 X 10*3/uL (0.00-0.01); Platelet Count 266 X 10*3/uL (140-440); RBC 4.22 X 10*6/uL (4.10-5.20)
[2024-01-24 19:18] LABS: BUN/Creat Ratio 20.75 Ratio (12.00-20.00); Blood Urea Nitrogen 16.6 mg/dL (9.0-27.0); Carbon Dioxide 24.1 mmol/L (21.6-31.8); Chloride 105 mmol/L (96-109); Glucose 84 mg/dL (70-110); Potassium 4.4 mmol/L (3.5-5.5); Sodium 139 mmol/L (135-145)
[2024-01-24 19:19] LABS: ALT 28 U/L (8-44); AST 30 U/L (13-35); Albumin 4.5 g/dL (3.8-4.9); Albumin/Globulin Ratio 1.88 Ratio (1.60-3.17); Alkaline Phosphatase 96 U/L (41-126); Calcium 9.3 mg/dL (8.7-10.3); Globulin 2.4 g/dL (1.6-3.3); Total Bilirubin 0.3 mg/dL (0.3-1.2); Total Protein 6.9 g/dL (6.2-8.2)
== END | disposition home or self-care (01) ==
LOC: LABPAT 15:18
PROVIDERS: ATTEND Orthopaedic Surgery
DX: Z01.818 Encounter for other preprocedural examination (principal); Z22.322 Carrier or suspected carrier of Methicillin resistant Staphylococcus aureus; M16.11 Unilateral primary osteoarthritis, right hip; I44.0 Atrioventricular block, first degree; I49.8 Other specified cardiac arrhythmias; R00.1 Bradycardia, unspecified; R94.31 Abnormal electrocardiogram [ECG] [EKG]
CPT/HCPCS: 80053; 85027; 85610; 85730; 86850; 86900; 86901; 87070; 93005

== ENCOUNTER 2024-01-31 05:34 | Day surgery (SDC) | payer MEDICARE ==
[~2024-01-31 05:34] MED LIST: ACETAMINOPHEN TAB 500 MG TAB PO PRN; TRANEXAMIC 1,000 MG/100ML-NACL 1,000 MG in SALINE 1 100ML.BAG IVPB PRN
[2024-01-31] MEDS ORDERED: fentaNYL (PF) 50 MCG/ML 2 ML AMP IV PRN (05:40)
[2024-01-31] MEDS: IV FLUID CONTINUATION 1,000 ML IV ONE ×3 (05:55→13:49)
[2024-01-31] MEDS: LACTATED RINGERS 1,000 ML IV SCH (06:09)
[2024-01-31] MEDS: MELOXICAM 7.5 MG TAB PO PRN (06:12)
[2024-01-31] MEDS: GABAPENTIN 300 MG CAP PO PRN (06:12)
[2024-01-31] MEDS: DEXAMETHASONE SOD PHOSPHATE 4 MG/ML 1 ML VIAL IVP STA (06:14)
[2024-01-31] MEDS: ONDANSETRON 4 MG/2 ML VIAL IVP ONE (06:14)
[2024-01-31] MEDS: MIDAZOLAM 2 MG/2 ML VIAL IV ONE (06:25)
--- NOTE | 2024-01-31 06:45 | P.ANPRN ---
Procedure Note - Anesthesia - Nerve Block Performed Right Sam Single Time Out Performed: Yes Date of Procedure: 01/31/24 Procedure Start Time: : Procedure Stop Time: : Location of Patient: PreOp Indication: Acute Post-Operative Pain, Analgesia, Requested by Surgeon Sedation Type: Sedate with meaningful contact maintained Preparation: Sterile Prep Position: Supine Catheter: None Needle Types: Pajunk Needle Gauge: 21 Ultrasound used to visualize needle placement: Yes Ultrasound used to observe medication spread: Yes Injectate: 0.5% Ropivacaine (see comment for volume) (20cc plus 10mg dexamethasone) Blood Aspirated: No Pain Paresthesia on Injection Noted: No Resistance on Injection: Normal Image Stored and Saved: Yes Events: Uneventful and Well Tolerated
[2024-01-31] MEDS ORDERED: PROPOFOL 10 MG/ML 20 ML VIAL IV ONE (06:56)
[2024-01-31] MEDS ORDERED: DEXAMETHASONE SOD PHOSPHATE 4 MG/ML 1 ML VIAL ONE (06:56)
[2024-01-31] MEDS ORDERED: MIDAZOLAM 2 MG/2 ML VIAL ONE (06:56)
[2024-01-31] MEDS ORDERED: TRANEXAMIC 1,000 MG/100ML-NACL PREMIX BAG ONE (06:56)
[2024-01-31] MEDS ORDERED: ROPIVACAINE 5 MG/ML 30 ML VIAL ONE (06:56)
[2024-01-31] MEDS: ROPIVACAINE 5 MG/ML 30 ML VIAL MISCELLANE ONE ×2 (07:31→07:55)
--- NOTE | 2024-01-31 08:01 | P.OP ---
Date of Procedure: 01/31/24 Preoperative Diagnosis: Severe osteoarthritis right hip Postoperative Diagnosis: Severe osteoarthritis right hip Procedure(s) Performed: Right total hip arthroplasty with a direct anterior approach Implants: [employer] Polarstem standard size 3 with a collar [employer] R3, 3 hole hemispherical acetabular shell, 50 mm [employer] Reflection 6.5 mm cancellus screws, 25 mm 2 [employer] R3, XLPE 20 acetabular liner [employer] Oxinium femoral head 36 mm, +0 All components were press-fit. The articulation is Oxinium on polyethylene. Anesthesia: spinal Surgeon: [employer] Rep #1: Aimee Noguera Estimated Blood Loss (ml): 400 Pathology: none sent Condition: stable Disposition: PACU Indications for Procedure: After failure of conservative treatment we discussed the surgical and nons urgical treatment options at length. Patient wishes to proceed with a total hip arthroplasty with a direct anterior approach. Complications specific to this procedure were discussed at length, including but not limited to infection, leg length discrepancy, dislocation, nerve injury, and fracture. Covid-19 was also discussed at length with the patient, and they are aware of the current policies and procedures. The patient was given the option of delaying surgery, but they elect to proceed knowing these risks. Patient is aware of all these complications and informed consent was obtained Operative Findings: The operative findings are consistent with severe osteoarthritis of the right hip Description of Procedure: The patient was seen and evaluated in the preoperative area and the consent was reviewed. The operative site was marked with a skin marker. The patient verified the procedure and operative site. A ZOILA block was placed by anesthesia in the preoperative area. The patient was then brought to the operating room and given preoperative antibiotics intravenously. 1 g of Tranexamic acid was also given intravenously. A spinal anesthetic was administered by the anesthesia department. The patient was then placed on the Metz table with the bony prominences well-padded. The hip area was then prepped with a ChloraPrep solution and draped in the usual sterile fashion. A universal timeout was then performed, which confirmed the patient's name, surgical site, ALLERGIES, and procedure being performed on the consent. Next the incision site was located at 1 cm distal and 4 cm lateral to the anterior superior iliac spine. The skin and subcutaneous tissues were sharply incised. Incision was carefully dissected down to the fascia overlying the tensor fascia ruth muscle. This fascia was then incised in line with the muscle fibers. Care was taken to stay laterally in order to avoid injuring the lateral femoral cutaneous nerve. Next, using blunt finger dissection, the tensor fascia ruth muscle was dissected off its investing fascia. The muscle was then carefully retracted laterally with a cobra retractor over the lateral neck of the femur. Next, the circumflex vessels were identified and cauterized using the Aquamantis device. The anterior hip capsule was then exposed. The capsule was then opened and an inverted T fashion. The retractors were then placed intracapsularly. The retractors were maintained intracapsular throughout the procedure. The proximal femur was then visualized. Fluoroscopic x-rays were then taken in order to evaluate the preoperative leg lengths. A small amount of traction was placed on the leg. The femoral neck was then osteotomized at the appropriate level above the lesser trochanter. A small wedge of bone was then removed from the remaining femoral head. Next, using a corkscrew the femoral head was removed from the acetabulum. On gross visual inspection, the femoral head had complete loss of articular cartilage and multiple periarticular osteophytes. The femoral head was then measured. Attention was then turned to the acetabulum. The acetabulum was exposed and any remaining labrum was excised. Sequential reaming of the acetabulum was performed using fluoroscopic guidance until there was a good bed of bleeding cancellus bone. When the appropriate size was reached, a trial was then placed. The position and fit of the trial was checked with fluoroscopy. The trial was then removed. Then, using fluoroscopic guidance, the final implant was impacted at 20 of anteversion and 40 of abduction, and fully seated in the acetabulum. 2 screws were then placed in the acetabulum. Again fluoroscopy was used to check position of the screws. Next, the liner was then impacted, with a 20 elevated liner located in the anterior superior quadrant. Component locking was confirmed. Attention was then directed to the femur. With the aid of the Metz table, the femur was externally rotated to approximately 130, extended, and adducted under the opposite leg. A side hook was then placed under the proximal femur, and the side hook elevator was used to elevate the proximal femur while releasing the capsule. Retractors were then placed. A capsular release was performed, as well as a release of the conjoined tendon, which afforded excellent visualization of the proximal femur. Next, a box osteotome was used to lateralize the proximal femur. A hand flatwork finisher was then used to locate the femoral canal. Sequential broaching was then performed with appropriate size which afforded excellent fixation in the proximal femur. A trial was then placed with appropriate head and neck, and the hip was gently reduced with the aid of the Metz table. Fluoroscopy was then used to check position of the components, as well as to evaluate the leg lengths and offset. The leg lengths and offset were measured as closely as possible to ensure stability of the hip. The hip was then gently dislocated and the trials were then removed. Final implants were then impacted and the hip was again reduced. Final fluoroscopic x-rays confirmed that the components were in anatomic position. The leg lengths and offset were measured and were found to coincide with the trial measurements. The hip was also taken through range of motion, and found to be stable. The hip was then copiously irrigated with antibiotic solution with pulsatile lavage. The hip was then irrigated with Irrisept solution. The soft tissues were then injected with a ropivacaine solution. A second dose of 1 g of Tranexamic acid was also given intravenously. The fascia was then closed with 2-0 strata fix suture. The subcutaneous tissue was closed with 3-0 Vicryl. The subcuticular tissue was closed with 3-0 strata fix suture. The skin was then closed with Exofin skin glue. After the glue and dried, and Optifoam silver impregnated dressing was applied. The patient was then transferred to the recovery room in stable condition. The training assistant SAMI Calvo was required due to the complexity of surgery, and the need for skilled surgical specialist for positioning, draping, exposure, retraction, and closure of the wound.
[2024-01-31] MEDS ORDERED: NALOXONE 0.4 MG/ML 1 ML VIAL IV PRN (08:30)
[2024-01-31] MEDS ORDERED: HYDROmorphone 0.5 MG/0.5 ML SYRINGE IVP PRN ×2 (08:30)
[2024-01-31] MEDS ORDERED: MAGNESIUM HYDROXIDE 2,400 MG/30 ML CUP PO PRN (08:30)
[2024-01-31] MEDS ORDERED: HYDROcodone/APAP 7.5-325MG 1 EACH TAB PO PRN (08:34)
--- NOTE | 2024-01-31 09:03 | XR ---
EXAMINATION TYPE: XR Hip Limited RT DATE OF EXAM: 01/31/2024 COMPARISON: None HISTORY: Postop right hip replacement TECHNIQUE: AP right hip FINDINGS: Femoral component and acetabular component are present. No dislocation evident. No acute fr actures are evident post right hip replacement. Postsurgical soft tissue changes are present. IMPRESSION: 1. No acute fracture post right hip replacement [facility] Amalia Vela, , 01/31/2024 9:01 AM
[2024-01-31] MEDS: HYDROmorphone 0.5 MG/0.5 ML SYRINGE IVP PRN ×2 (10:00→11:48)
[2024-01-31] MEDS: ONDANSETRON 4 MG/2 ML VIAL IVP PRN (13:09)
[2024-01-31] MEDS: SODIUM CHLORIDE 0.9% 1,000 ML IV SCH ×2 (14:29→18:37)
[2024-01-31] MEDS ORDERED: ONDANSETRON 4 MG/2 ML VIAL IVP PRN (15:44)
[2024-01-31] MEDS: PANTOPRAZOLE 40 MG/10 ML VIAL IVP SCH (15:59)
[2024-01-31] MEDS: METOCLOPRAMIDE 5 MG/ML 2 ML VIAL IVP PRN (15:59)
[2024-01-31 16:35] LABS: Basophils % (A) 0 %; Eosinophils % (A) 0 %; HCT 34.4 % (34.0-46.0); HGB 11.3 gm/dL (11.4-16.0); Lymphocytes # (A) 0.7 k/uL (1.0-4.8); Lymphocytes % (A) 8 %; MCH 31.2 pg (25.0-35.0); MCHC 32.8 g/dL (31.0-37.0); MCV 95.1 fL (80.0-100.0); Mean Platelet Volume 7.4; Monocytes # (A) 0.3 k/uL (0-1.0); Monocytes % (A) 3 %; Neutrophils # (A) 7.7 k/uL (1.3-7.7); Neutrophils % (A) 88 %; Platelet Count 245 k/uL (150-450); RBC 3.61 m/uL (3.80-5.40); RDW 12.9 % (11.5-15.5); WBC 8.7 k/uL (3.8-10.6)
[2024-01-31 16:58] LABS: ALT 24 U/L (4-34); AST 36 U/L (14-36); African American GFR (CKD) >90 (>60 ml/min/1.73 sqM); Albumin 3.7 g/dL (3.5-5.0); Albumin/Globulin Ratio 1.5; Alkaline Phosphatase 86 U/L (38-126); Anion Gap 7 mmol/L; Blood Urea Nitrogen 17 mg/dL (7-17); Calcium 8.9 mg/dL (8.4-10.2); Carbon Dioxide 24 mmol/L (22-30); Chloride 108 mmol/L (98-107); Globulin 2.4 g/dL; Glucose 158 mg/dL (74-99); Non-African American GFR(CKD) 85 (>60 ml/min/1.73 sqM); Potassium 4.8 mmol/L (3.5-5.1); Sodium 139 mmol/L (137-145); Total Bilirubin 0.5 mg/dL (0.2-1.3); Total Protein 6.1 g/dL (6.3-8.2)
[2024-01-31] MEDS ORDERED: METOCLOPRAMIDE 5 MG/ML 2 ML VIAL IVP SCH (18:00)
[2024-01-31] MEDS: APIXABAN 2.5 MG TABLET PO SCH (20:17)
[2024-01-31] MEDS: SENNOSIDES-DOCUSATE SODIUM 1 EACH TAB PO SCH (20:17)
[2024-01-31] MEDS: ATORVASTATIN 20 MG TAB PO SCH (20:17)
[2024-01-31] MEDS: HYDROcodone/APAP 7.5-325MG 1 EACH TAB PO PRN (20:21)
[2024-01-31] MEDS: BRIMONIDINE TARTRATE 0.2% DROPS 5 ML BTL RIGHT EYE SCH (23:53)
[2024-01-31] MEDS: DORZOLAMIDE HCL 2% DROPS 10 ML BTL RIGHT EYE SCH (23:54)
--- NOTE | 2024-02-01 02:16 | CONS ---
CONSULTATION REASON FOR CONSULTATION: Advice regarding postoperative nausea and vomiting, requested by Orthopedics. HISTORY OF PRESENT ILLNESS: An 83-year-old woman with a past history of multiple medical problems, admitted after right hip arthroplasty. The patient had severe postoperative nausea and vomiting. There is no history of fever, rigors, chills at this time. PAST MEDICAL HISTORY: Reviewed include hyperlipidemia and DJD. Rest of the history and rest of the chart is also reviewed. HOME MEDICATIONS: Reviewed Ultram, rest of medications reviewed. ALLERGIES: Reviewed, aspirin. FAMILY HISTORY: History of CHF and COPD. SOCIAL HISTORY: Daily smoking. Occasional alcohol. REVIEW OF SYSTEMS: A 14-point review is negative except as mentioned. PHYSICAL EXAMINATION: VITAL SIGNS: Pulse is 74, blood pressure 160/70, and respirations 16. HEENT: Conjunctivae normal. CARDIOVASCULAR: S1, S2. RESPIRATIONS: Clear to auscultation. ABDOMEN: Soft, nontender. NERVOUS SYSTEM: Nonfocal. LEGS: Status post arthroplasty. LABORATORY DATA: Not available. ASSESSMENT: 1. Postoperative nausea and vomiting. 2. Status post right hip arthroplasty. 3. Hyperlipidemia. 4. History of nicotine dependence. RECOMMENDATION: This is an 83-year-old woman presented after surgery. At this time, I recommend to continue the current management, continue symptomatic treatment. Otherwise recommend Protonix as well as Reglan p.r.n. Resume the home medications, basic labs, IV fluids. Guarded prognosis. Further recommendations to follow. See orders for further details. Discussed with family. MMODL / IJN: [id number] /
[2024-02-01 04:19] VITALS: RESP 16
[2024-02-01 08:34] VITALS: BP 164/56; PULSE 72; TEMP 98.1
[2024-02-01 08:45] LABS: Basophils # (A) 0.01 X 10*3/uL (0.00-0.10); Basophils % (A) 0.1 %; Eosinophils # (A) 0 X 10*3/uL (0.04-0.35); Eosinophils % (A) 0 %; HCT 30.4 % (37.2-46.3); HGB 10.2 g/dL (12.0-15.0); Lymphocytes % (A) 21.8 %; MCH 31.3 pg (27.0-32.0); MCHC 33.6 g/dL (32.0-37.0); MCV 93.3 FL (80.0-97.0); Mean Platelet Volume 10.2 FL (9.5-12.2); Monocytes # (A) 1.08 X 10*3/uL (0.20-1.00); Monocytes % (A) 11.8 %; NRBC Per 100 WBC 0 X 10*3/uL (0.00-0.01); Neutrophils # (A) 6.07 X 10*3/uL (1.80-7.70); Platelet Count 209 X 10*3/uL (140-440); RBC 3.26 X 10*6/uL (4.10-5.20); WBC 9.19 X 10*3/uL (4.50-10.00)
--- NOTE | 2024-02-01 09:15 | P.DS ---
Providers Expected date of discharge: 02/01/24 Attending physician: Jeff Truong Consults: 01/31/24 14:33 Consult Physician Routine Consulting Provider: Radha Rios Consult Reason/Comments: medical management Do you want consulting provider notified?: Yes Primary care physician: Vikki Biggs - Discharge Diagnosis(es) (1) Osteoarthritis of right hip Current Visit: Yes Status: Acute (2) S/P total hip arthroplasty Current Visit: Yes Status: Acute Hospital Course: This is an 83-year-old female with known history of degenerative arthritis of the right hip. The patient presented for evaluation as an outpatient. After discussion and consideration patient elects to proceed with total hip arthroplasty. The patient is seen preoperatively by Dr. Truong and medically cleared for surgery by their primary care physician. Patient is admitted to [facility] on 01/31/2024 for total hip arthroplasty. The procedure is performed without complication or sequelae. The patient is doing well postoperatively. Labs and vital signs are stable on day of discharge. On day of discharge patient's hip incision is healing well. There is minimal erythema. There is no drainage noted at this time. There is minimal soft tissue swelling to the hip and thigh. Patient has full foot and ankle motion without difficulty or pain. Calf is soft and nontender to palpation. Neurovascular status to the right lower extremity is intact. Patient is discharged home in good condition. Please see med rec for accurate list of home medications. Plan - Discharge Summary Discharge Rx Participant: No New Discharge Prescriptions: New Sennosides [Senokot] 2 tab PO DAILY PRN #60 tablet PRN Reason: Constipation Apixaban [Eliquis] 2.5 mg PO BID 30 Days #60 tab HYDROcodone/APAP 7.5-325MG [[place] 7.5-325] 1 tab PO Q6H PRN #28 tab PRN Reason: Pain No Action Atorvastatin [Lipitor] 20 mg PO HS Brimonidine Tartrate [Alphagan P 0.15% Ophth Soln] 1 drops RIGHT EYE BID Glucosamine HCl/Chondroitin Anaya [Glucosamine-Chondroitin Cap] 2 tab PO HS Cranberry Fruit Extract [Cranberry] 200 mg PO Q48H Vitamin B Complex 1 tab PO DAILY Calcium Carbonate [Calcium] 600 mg PO DAILY Brinzolamide [Brinzolamide 1% Ophth Susp] 1 drop RIGHT EYE BID Maganese 1 tab PO DAILY Natural Muscle Relaxant 303 1 tab PO TID Hemp Oil Gummies 1 tab PO BID Acetaminophen [Tylenol Extra Strength] 2 tab PO BID PRN PRN Reason: Pain Cholecalciferol [Vitamin D3 (25 Mcg = 1000 Iu)] 1 tab PO DAILY Vitamin E (Dl,Tocopheryl Acet) [Vitamin E (400 Iu = 180 mg)] 1 tab PO DAILY Magnesium 250 mg PO DAILY traMADol HCL 50 mg PO Q6H PRN PRN Reason: Pain Multivitamin [Multivitamins Adult Gummies] 1 tab PO DAILY Ibuprofen [Motrin] 800 mg PO Q8H PRN PRN Reason: Pain Discharge Medication List Atorvastatin [Lipitor] 20 mg PO HS 05/12/18 [History] Brimonidine Tartrate [Alphagan P 0.15% Ophth Soln] 1 drops RIGHT EYE BID 04/22/20 [History] Acetaminophen [Tylenol Extra Strength] 2 tab PO BID PRN 01/25/24 [History] Brinzolamide [Brinzolamide 1% Ophth Susp] 1 drop RIGHT EYE BID 01/25/24 [History] Calcium Carbonate [Calcium] 600 mg PO DAILY 01/25/24 [History] Cholecalciferol [Vitamin D3 (25 Mcg = 1000 Iu)] 1 tab PO DAILY 01/25/24 [History] Cranberry Fruit Extract [Cranberry] 200 mg PO Q48H 01/25/24 [History] Glucosamine HCl/Chondroitin Anaya [Glucosamine-Chondroitin Cap] 2 tab PO HS 01/25/24 [History] Hemp Oil Gummies 1 tab PO BID 01/25/24 [History] Ibuprofen [Motrin] 800 mg PO Q8H PRN 01/25/24 [History] Maganese 1 tab PO DAILY 01/25/24 [History] Magnesium 250 mg PO DAILY 01/25/24 [History] Multivitamin [Multivitamins Adult Gummies] 1 tab PO DAILY 01/25/24 [History] Natural Muscle Relaxant 303 1 tab PO TID 01/25/24 [History] Vitamin B Complex 1 tab PO DAILY 01/25/24 [History] Vitamin E (Dl,Tocopheryl Acet) [Vitamin E (400 Iu = 180 mg)] 1 tab PO DAILY 01/25/24 [History] traMADol HCL 50 mg PO Q6H PRN 01/25/24 [History] HYDROcodone/APAP 7.5-325MG [[place] 7.5-325] 1 tab PO Q6H PRN #28 tab 01/31/24 [Rx] Sennosides [Senokot] 2 tab PO DAILY PRN #60 tablet 01/31/24 [Rx] Apixaban [Eliquis] 2.5 mg PO BID 30 Days #60 tab 02/01/24 [Rx] Follow up Appointment(s)/Referral(s): Jeff Truong DO [Doctor of Osteopathic Medicine] - 2 Weeks Activity/Diet/Wound Care/Special Instructions: Weightbearing as tolerated with walker. Leave dressing intact. Dressing may be removed by home care nurse or by patient in 7 days. Then change dressing twice daily until follow up. May shower with initial dressing intact and after removal. If dressing become saturated, please remove. Please take Eliquis twice daily for 30 days to prevent blood clots. Recommend use of compression stockings daily until follow up to help prevent swelling and blood clots. May remove at night before sleeping. Please follow[facility]up with [facility] 2 weeks and call with any questions or concerns, . Discharge Disposition: HOME WITH HOME HEALTH SERVICES
[2024-02-01] MEDS: MAGNESIUM OXIDE 400 MG TAB PO SCH (09:43)
--- NOTE | 2024-02-01 14:37 | PN ---
PROGRESS NOTE DATE OF SERVICE: 02/01/2024 SUBJECTIVE: This is an 83-year-old woman, who was admitted with severe postoperative nausea and vomiting after surgery, is improving significantly. No chest pain. No palpitations. No fever. OBJECTIVE: VITAL SIGNS: Pulse is 72, blood pressure 160/56, respirations 16. CHEST: Clear. CARDIOVASCULAR: S1, S2. ABDOMEN: Soft. LABORATORY DATA: Reviewed. ASSESSMENT: 1. Severe postoperative nausea and vomiting, improved. 2. Status post right hip arthroplasty. 3. Hyperlipidemia. 4. History of nicotine dependence. RECOMMENDATIONS: Recommend to continue current medications, continue symptomatic treatment. Resume the home medications. Rest of the recommendations include DVT prophylaxis per Ortho. Closely follow with primary physician. MMODL / IJN: [id number] /
--- NOTE | 2024-02-15 18:22 | FL ---
EXAMINATION TYPE: FL guidance operating room, XR Hip Limited RT DATE OF EXAM: 01/31/2024 8:09 AM COMPARISON: Pre Operative Images if available both CT/MRI or plain film. CLINICAL INDICATION: Female, 83 years old with history of RIGHT ANTERIOR HIP; TECHNIQUE: FL guidance operating room, XR Hip Limited RT, multiple fluoroscopic images provided for p rocedure. Total fluoroscopy time: 51 seconds minutes Total submitted images to PACS: 3 DAP: 2.2342 mGym2 Gycm2 uGym2 cGycm2 FINDINGS: Fluoroscopic images during internal fixation/arthroplasty demonstrate fixation hardware in appropriat e position. Hardware appears intact. No immediate complication identified. IMPRESSION: 1. No evidence for intraoperative complication. 2. Please see the operative/procedural note for further details. [facility], , 02/15/2024 6:19 PM
== END 2024-02-01 12:51 | disposition home health service (06) ==
LOC: OR 05:34 → 4SSUR 13:26 → OR 02-01 12:51
PROVIDERS: ATTEND Orthopaedic Surgery
DX: M16.11 Unilateral primary osteoarthritis, right hip (principal); E78.5 Hyperlipidemia, unspecified; G89.18 Other acute postprocedural pain; F17.200 Nicotine dependence, unspecified, uncomplicated; Z88.6 Allergy status to analgesic agent; Z79.899 Other long term (current) drug therapy; Z79.01 Long term (current) use of anticoagulants
CPT/HCPCS: 64447; 73501; 80053; 85025

== ENCOUNTER 2024-02-14 15:49 | Inpatient (IN) | payer MEDICARE ==
[2024-02-14 16:41] LABS: Basophils # (A) 0.1 k/uL (0-0.2); Basophils % (A) 1 %; Eosinophils # (A) 0.2 k/uL (0-0.7); Eosinophils % (A) 2 %; HCT 34.6 % (34.0-46.0); HGB 11.3 gm/dL (11.4-16.0); Lymphocytes # (A) 2.1 k/uL (1.0-4.8); Lymphocytes % (A) 23 %; MCH 30.9 pg (25.0-35.0); MCHC 32.6 g/dL (31.0-37.0); MCV 94.9 fL (80.0-100.0); Mean Platelet Volume 7.3; Monocytes # (A) 0.5 k/uL (0-1.0); Monocytes % (A) 6 %; Neutrophils # (A) 6.1 k/uL (1.3-7.7); Neutrophils % (A) 66 %; RBC 3.65 m/uL (3.80-5.40); RDW 13.9 % (11.5-15.5); WBC 9.3 k/uL (3.8-10.6)
[2024-02-14] MEDS: SODIUM CHLORIDE 0.9% 500 ML 500 ML IV STA (16:43)
[2024-02-14] MEDS: DILTIAZEM 125 MG in SODIUM CHLORIDE 0.9% 100 ML IV SCH (16:43)
[2024-02-14] MEDS: DILTIAZEM DRIP BOLUS FROM BAG 1 MG SOLN IV ONE (16:44)
[2024-02-14 16:50] LABS: Partial Thromboplastin Time 28.6 sec (22.0-30.0); Prothrombin Time 10.6 sec (10.0-12.5)
[2024-02-14 16:52] LABS: Platelet Count 560 k/uL (150-450)
--- NOTE | 2024-02-14 16:52 | ED ---
General Adult HPI - General Chief complaint: Dizziness Stated complaint: dizziness,neck pain Source: patient, family, RN notes reviewed, old records reviewed Mode of arrival: wheelchair Limitations: no limitations - History of Present Illness Initial comments: 83-year-old female presenting for evaluation of dizziness, lightheadedness. Patient reports associated nausea and jaw pain. She denies chest pain. Patient is noted to be in a rapid atrial fibrillation upon arrival. She has no prior history of A-fib. She is currently taking Eliquis in the postoperative period after a right hip replacement. She denies vomiting or diarrhea. She states she has been eating and drinking well. She states she is healing well from her surgery. No fevers. - Related Data Home Medications Medication Instructions Recorded Confirmed Atorvastatin [Lipitor] 20 mg PO HS 05/12/18 02/14/24 Brimonidine Tartrate [Alphagan P 1 drop RIGHT EYE BID 04/22/20 02/14/24 0.15% Ophth Soln] Acetaminophen [Tylenol Extra 2 tab PO BID PRN 01/25/24 02/14/24 Strength] Brinzolamide [Brinzolamide 1% 1 drop RIGHT EYE BID 01/25/24 02/14/24 Ophth Susp] Calcium Carbonate [Calcium] 600 mg PO DAILY 01/25/24 02/14/24 Cholecalciferol [Vitamin D3 (25 1 tab PO DAILY 01/25/24 02/14/24 Mcg = 1000 Iu)] Cranberry Fruit Extract [Cranberry] 200 mg PO Q48H 01/25/24 02/14/24 Glucosamine HCl/Chondroitin Anaya 2 tab PO HS 01/25/24 02/14/24 [Glucosamine-Chondroitin Cap] Maganese 1 tab PO DAILY 01/25/24 02/14/24 Magnesium 250 mg PO DAILY 01/25/24 02/14/24 Multivitamin [Multivitamins Adult 1 tab PO DAILY 01/25/24 02/14/24 Gummies] Vitamin B Complex 1 tab PO DAILY 01/25/24 02/14/24 Vitamin E (Dl,Tocopheryl Acet) 1 tab PO DAILY 01/25/24 02/14/24 [Vitamin E (400 Iu = 180 mg)] Previous Rx's Medication Instructions Recorded HYDROcodone/APAP 7.5-325MG [[place] 1 tab PO Q6H PRN #28 tab 01/31/24 7.5-325] Apixaban [Eliquis] 2.5 mg PO BID 30 Days #60 tab 02/01/24 Allergies Allergy/AdvReac Type Severity Reaction Status Date / Time aspirin Allergy Unknown Verified 02/14/24 18:04 codeine Allergy Unknown Verified 02/14/24 18:04 metronidazole [From Flagyl] Allergy Itching Verified 02/14/24 18:04 Sulfa (Sulfonamide Allergy headache/ra Verified 02/14/24 18:04 Antibiotics) sh morphine AdvReac Vomiting Verified 02/14/24 18:04 Review of Systems ROS Statement: Those systems with pertinent positive or pertinent negative responses have been documented in the HPI. ROS Other: All systems not noted in ROS Statement are negative. Past Medical History Past Medical History: Hyperlipidemia, Osteoarthritis (OA) Additional Past Medical History / Comment(s): spinal stenosis, bradycardia History of Any Multi-Drug Resistant Organisms: None Reported Past Surgical History: Appendectomy, Hysterectomy, Joint Replacement, Orthopedic Surgery, Tonsillectomy Additional Past Surgical History / Comment(s): varicose vein removal, bilateral cataract extraction, breast lump removal. bilateral carpal tunnel release, right anterior total hip. Lt. knee scope x 2 Past Anesthesia/Blood Transfusion Reactions: Postoperative Nausea & Vomiting (PONV) Additional Past Anesthesia/Blood Transfusion Reaction / Comment(s): patient had anesthesia on 02/10/16 for a cataract removal. afterwards became lightheaded, nauseous, and was found to be bradycardic. no problems w/ most recent surgery 2023 Past Psychological History: No Psychological Hx Reported Smoking Status: Current every day smoker Past Alcohol Use History: Rare Past Drug Use History: None Reported - Past Family History Father Family Medical History: AICD/Pacemaker, Congestive Heart Failure (CHF), COPD, Hyperlipidemia, Hypertension Additional Family Medical History / Comment(s): lived until age 95. CABG, pacemaker, seizures, neuropathy Mother Family Medical History: Dementia, Hyperlipidemia, Hypertension, Osteoarthritis (OA) Additional Family Medical History / Comment(s): lived until age 90. CABG, gl aucoma Brother(s) Family Medical History: Hyperlipidemia Sister(s) Family Medical History: CVA/TIA, Hyperlipidemia Additional Family Medical History / Comment(s): loop recorder General Exam Limitations: no limitations General appearance: alert, in no apparent distress Head exam: Present: atraumatic, normocephalic Eye exam: Present: normal appearance, PERRL ENT exam: Present: normal exam Neck exam: Present: normal inspection. Absent: tenderness, meningismus Respiratory exam: Present: normal lung sounds bilaterally. Absent: respiratory distress, wheezes Cardiovascular Exam: Present: tachycardia, irregular rhythm GI/Abdominal exam: Present: soft. Absent: distended, tenderness, guarding Extremities exam: Present: other (Swelling to the right lower extremity) Course Vital Signs 02/14/24 02/14/24 15:53 17:14 Temperature 97.6 F Pulse Rate 114 H 86 Respiratory 20 18 Rate Blood Pressure 118/66 150/65 O2 Sat by Pulse 99 98 Oximetry Medical Decision Making - Medical Decision Making Was pt. sent in by a medical professional or institution ([facility], [employer], urgent care, hospital, or shelter...) When possible be specific @ -No Did you speak to anyone other than the patient for history (EMS, parent, family, police, friend...)? What history was obtained from this source @ -No Did you review nursing and triage notes (agree or disagree)? Why? @ -I reviewed and agree with nursing and triage notes Were old charts reviewed (outside hosp., previous admission, EMS record, old EKG, old radiological studies, urgent care reports/EKG's, shelter records)? Report findings @ -No old charts were reviewed Differential Palpitations Ventricular arrhythmias, atrial arrhythmias, myocardial infarction, anemia, thyrotoxicosis, electrolyte imbalance, hypokalemia, pulmonary embolism, pulmonary disease, drugs, alcohol, anxiety, stress.... This is not meant to be an all-inclusive list. EKG interpreted by me (3pts min.). @Atrial fibrillation with rapid ventricular response, rate of 125, QRS duration 123, QTc 380, left bundle branch block Repeat EKG at 1714 shows sinus rhythm with first-degree AV block, left bundle branch block, rate of 81, CO interval 300, QRS duration 131, QTc 423, history of left bundle branch block X-rays interpreted by me (1pt min.). @ -Chest x-ray negative for acute cardiopulmonary findings CT interpreted by me (1pt min.). @ -None done U/S interpreted by me (1pt. min.). @Ultrasound of the right leg is negative for DVT What testing was considered but not performed or refused? (CT, X-rays, U/S, labs)? Why? @ -None What meds were considered but not given or refused? Why? @ -None Did you discuss the management of the patient with other professionals (professionals i.e. , PA, [employer], lab, RT, psych nurse, social sciences professor, smoke inspector, teacher, professional security officer, manager of case management)? Give summary @Yes, [facility] Was smoking cessation discussed for >3mins.? @ -No Was critical care preformed (if so, how long)? @ -Yes, 35 minutes Were there social determinants of health that impacted care today? How? (Homelessness, low income, unemployed, alcoholism, drug addiction, transportation, low edu. Level, literacy, decrease access to med. care, snf, rehab)? @ -No Was there de-escalation of care discussed even if they declined (Discuss DNR or withdrawal of care, Hospice)? DNR status @ -No What co-morbidities impacted this encounter? (DM, HTN, Smoking, COPD, CAD, Cancer, CVA, ARF, Chemo, Hep., AIDS, mental health diagnosis, sleep apnea, morbid obesity)? @ -None Was patient admitted / discharged? Hospital course, mention meds given and route, prescriptions, significant lab abnormalities, going to OR and other pertinent info. @ -83-year-old female presenting with lightheadedness, found to be in atrial fibrillation with RVR rate exceeding 150. Patient started on Cardizem. She does have associated shortness of breath and jaw pain which may be anginal equivalents. She does convert to sinus rhythm but will be monitored on telemetry and serial cardiac enzymes as well as echo will be obtained. She is admitted to internal medicine with cardiology on consultation. [facility] Undiagnosed new problem with uncertain prognosis? @ -No Drug Therapy requiring intensive monitoring for toxicity (Heparin, Nitro, Insulin, Cardizem)? @ -No Were any procedures done? @ -No Diagnosis/symptom? @ -New onset atrial fibrillation with RVR Acute, or Chronic, or Acute on Chronic? @ -Acute Uncomplicated (without systemic symptoms) or Complicated (systemic symptoms)? @ -Default Side effects of treatment? @ -No Exacerbation, Progression, or Severe Exacerbation? @ -No Poses a threat to life or bodily function? How? (Chest pain, USA, ND, pneumonia, PE, COPD, DKA, ARF, appy, cholecystitis, CVA, Diverticulitis, Homicidal, Suicidal, threat to staff... and all critical care pts) @Yes, atrial fibrillation, arrhythmia, cardiogenic shock - Lab Data Result diagrams: 02/14/24 16:34 02/14/24 16:34 Lab Results 02/14/24 02/14/24 02/14/24 Range/Units 16:34 16:34 16:34 WBC 9.3 (3.8-10.6) k/uL RBC 3.65 L (3.80-5.40) m/uL Hgb 11.3 L (11.4-16.0) gm/dL Hct 34.6 (34.0-46.0) % MCV 94.9 (80.0-100.0) fL MCH 30.9 (25.0-35.0) pg MCHC 32.6 (31.0-37.0) g/dL RDW 13.9 (11.5-15.5) % Plt Count 560 H D (150-450) k/uL MPV 7.3 Neutrophils % 66 % Lymphocytes % 23 % Monocytes % 6 % Eosinophils % 2 % Basophils % 1 % Neutrophils # 6.1 (1.3-7.7) k/uL Lymphocytes # 2.1 (1.0-4.8) k/uL Monocytes # 0.5 (0-1.0) k/uL Eosinophils # 0.2 (0-0.7) k/uL Basophils # 0.1 (0-0.2) k/uL PT 10.6 (10.0-12.5) sec INR 1.0 (<1.2) APTT 28.6 (22.0-30.0) sec Sodium 139 (137-145) mmol/L Potassium 4.4 (3.5-5.1) mmol/L Chloride 108 H (98-107) mmol/L Carbon Dioxide 26 (22-30) mmol/L Anion Gap 5 mmol/L BUN 19 H (7-17) mg/dL Creatinine 0.79 (0.52-1.04) mg/dL Est GFR (CKD-EPI)AfAm 80 (>60 ml/min/1.73 sqM) Est GFR (CKD-EPI)NonAf 70 (>60 ml/min/1.73 sqM) Glucose 110 H (74-99) mg/dL Calcium 9.8 (8.4-10.2) mg/dL Magnesium 2.1 (1.6-2.3) mg/dL Total Bilirubin 0.5 (0.2-1.3) mg/dL AST 29 (14-36) U/L ALT 18 (4-34) U/L Alkaline Phosphatase 103 (38-126) U/L Troponin I (0.000-0.034) ng/mL Total Protein 6.9 (6.3-8.2) g/dL Albumin 4.2 (3.5-5.0) g/dL TSH 2.460 (0.465-4.680) mIU/L Urine Color Urine Appearance (Clear) Urine pH (5.0-8.0) Ur Specific [facility] (1.001-1.035) Urine Protein (Negative) Urine Glucose (UA) (Negative) Urine Ketones (Negative) Urine Blood (Negative) Urine Nitrite (Negative) Urine Bilirubin (Negative) Urine Urobilinogen (<2.0) mg/dL Ur Leukocyte Esterase (Negative) 02/14/24 02/14/24 Range/Units 16:34 17:49 WBC (3.8-10.6) k/uL RBC (3.80-5.40) m/uL Hgb (11.4-16.0) gm/dL Hct (34.0-46.0) % MCV (80.0-100.0) fL MCH (25.0-35.0) pg MCHC (31.0-37.0) g/dL RDW (11.5-15.5) % Plt Count (150-450) k/uL MPV Neutrophils % % Lymphocytes % % Monocytes % % Eosinophils % % Basophils % % Neutrophils # (1.3-7.7) k/uL Lymphocytes # (1.0-4.8) k/uL Monocytes # (0-1.0) k/uL Eosinophils # (0-0.7) k/uL Basophils # (0-0.2) k/uL PT (10.0-12.5) sec INR (<1.2) APTT (22.0-30.0) sec Sodium (137-145) mmol/L Potassium (3.5-5.1) mmol/L Chloride (98-107) mmol/L Carbon Dioxide (22-30) mmol/L Anion Gap mmol/L BUN (7-17) mg/dL Creatinine (0.52-1.04) mg/dL Est GFR (CKD-EPI)AfAm (>60 ml/min/1.73 sqM) Est GFR (CKD-EPI)NonAf (>60 ml/min/1.73 sqM) Glucose (74-99) mg/dL Calcium (8.4-10.2) mg/dL Magnesium (1.6-2.3) mg/dL Total Bilirubin (0.2-1.3) mg/dL AST (14-36) U/L ALT (4-34) U/L Alkaline Phosphatase (38-126) U/L Troponin I <0.012 (0.000-0.034) ng/mL Total Protein (6.3-8.2) g/dL Albumin (3.5-5.0) g/dL TSH (0.465-4.680) mIU/L Urine Color Yellow Urine Appearance Clear (Clear) Urine pH 7.0 (5.0-8.0) Ur Specific [facility] 1.010 (1.001-1.035) Urine Protein Negative (Negative) Urine Glucose (UA) Negative (Negative) Urine Ketones Negative (Negative) Urine Blood Negative (Negative) Urine Nitrite Negative (Negative) Urine Bilirubin Negative (Negative) Urine Urobilinogen <2.0 (<2.0) mg/dL Ur Leukocyte Esterase Negative (Negative) Critical Care Time Critical Care Time: Yes Total Critical Care Time: 35 Disposition Clinical Impression: Atrial fibrillation with RVR Disposition: ADMITTED IP TO THIS HOSP Condition: Stable Is patient prescribed a controlled substance at d/c from ED?: No Referrals: Vikki Biggs MD [Primary Care Provider] - 1-2 days Time of Disposition: 18:23
[2024-02-14 16:58] LABS: ALT 18 U/L (4-34); AST 29 U/L (14-36); African American GFR (CKD) 80 (>60 ml/min/1.73 sqM); Albumin 4.2 g/dL (3.5-5.0); Alkaline Phosphatase 103 U/L (38-126); Anion Gap 5 mmol/L; Blood Urea Nitrogen 19 mg/dL (7-17); Calcium 9.8 mg/dL (8.4-10.2); Carbon Dioxide 26 mmol/L (22-30); Chloride 108 mmol/L (98-107); Glucose 110 mg/dL (74-99); Magnesium 2.1 mg/dL (1.6-2.3); Non-African American GFR(CKD) 70 (>60 ml/min/1.73 sqM); Potassium 4.4 mmol/L (3.5-5.1); Sodium 139 mmol/L (137-145); Total Bilirubin 0.5 mg/dL (0.2-1.3); Total Protein 6.9 g/dL (6.3-8.2)
--- NOTE | 2024-02-14 17:28 | US ---
EXAMINATION TYPE: US venous doppler duplex LE RT DATE OF EXAM: 02/14/2024 5:04 PM COMPARISON: NONE CLINICAL INDICATION: Female, 83 years old with history of swelling; No hx of DVT. Patient has been ta [facility] x 2 weeks. Right hip surgery 01/31/2024. Swelling. SIDE PERFORMED: Right TECHNIQUE: The lower extremity deep venous system is examined utilizing real time linear array sonog barbara with graded compression, color doppler sonography, and spectral doppler. VESSELS IMAGED: Common Femoral Vein Deep Femoral Vein Greater Saphenous Vein * Femoral Vein Popliteal Vein Small Saphenous Vein * Proximal Calf Veins (* superficial vessels) Right Leg: No evidence of DVT. IMPRESSION: No evidence for deep vein thrombosis. [facility], Workstation: [employer] [id number], 02/14/2024 5:26 PM
--- NOTE | 2024-02-14 17:55 | XR ---
EXAMINATION TYPE: XR chest 2V DATE OF EXAM: 02/14/2024 5:31 PM CLINICAL INDICATION: Female, 83 years old with history of dysrhythmia; H COMPARISON: Chest radiographs from 05/12/2018 TECHNIQUE: XR chest 2V Frontal view of the chest. FINDINGS: Lungs/Pleura: There is no evidence of pleural effusion, focal consolidation, or pneumothorax. Pulmonary vascularity: Unremarkable. Heart/mediastinum: Cardiomediastinal silhouette is prominent in size. Musculoskeletal: No acute osseous pathology. IMPRESSION: No acute cardiopulmonary disease/process. [facility], , 02/14/2024 5:53 PM
[2024-02-14 18:06] LABS: Appearance,Urine Clear (Clear); Bilirubin,Urine Negative (Negative); Blood,Urine Negative (Negative); Color,Urine Yellow; Glucose,Urine (UA) Negative (Negative); Ketones,Urine Negative (Negative); Leukocyte Esterase,Urine Negative (Negative); Nitrite,Urine Negative (Negative); Protein,Urine Negative (Negative); Urobilinogen,Urine <2.0 mg/dL (<2.0)
[2024-02-14] MEDS ORDERED: NALOXONE 0.4 MG/ML 1 ML VIAL IV PRN (18:20)
[2024-02-14] MEDS: ATORVASTATIN 20 MG TAB PO SCH (20:09)
[2024-02-14] MEDS: APIXABAN 2.5 MG TABLET PO SCH (20:10)
[2024-02-14] MEDS: HYDROcodone/APAP 7.5-325MG 1 EACH TAB PO PRN (22:37)
[2024-02-15] MEDS: MAGNESIUM OXIDE 400 MG TAB PO SCH (09:39)
[2024-02-15] MEDS ORDERED: HEPARIN SODIUM 1,000 UN/ML (10ML VL) IV PRN (10:12)
[2024-02-15] MEDS ORDERED: CAFFEINE CITRATE 60 MG/3 ML VIAL IV PRN (10:13)
[2024-02-15] MEDS ORDERED: AMINOPHYLLINE 500 MG/20 ML VIAL IV PRN (10:13)
[2024-02-15] MEDS ORDERED: REGADENOSON 0.4 MG/5 ML SYRINGE IV PRN (10:13)
[2024-02-15 10:43] LABS: Basophils # (A) 0.1 k/uL (0-0.2); Basophils % (A) 1 %; Eosinophils # (A) 0.2 k/uL (0-0.7); Eosinophils % (A) 3 %; HCT 33.5 % (34.0-46.0); HGB 10.7 gm/dL (11.4-16.0); Hypochromasia Slight; Lymphocytes # (A) 1.5 k/uL (1.0-4.8); Lymphocytes % (A) 26 %; MCH 30.9 pg (25.0-35.0); MCHC 31.8 g/dL (31.0-37.0); MCV 96.9 fL (80.0-100.0); Monocytes # (A) 0.5 k/uL (0-1.0); Monocytes % (A) 8 %; Neutrophils # (A) 3.5 k/uL (1.3-7.7); Neutrophils % (A) 59 %; Platelet Count 528 k/uL (150-450); RBC 3.46 m/uL (3.80-5.40); RDW 13.8 % (11.5-15.5)
[2024-02-15 10:49] LABS: Partial Thromboplastin Time 27.9 sec (22.0-30.0); Prothrombin Time 10.7 sec (10.0-12.5)
[2024-02-15] MEDS: HEPARIN SOD,PORK IN 0.45% NACL 25,000 UNIT in 0.45% NACL 1 250ML.BAG IV SCH (11:47)
[2024-02-15] MEDS: HEPARIN SODIUM 1,000 UN/ML (10ML VL) IV ONE (11:48)
--- NOTE | 2024-02-15 14:23 | P.CRDCN ---
History of Present Illness Consult date: 02/15/24 Consult reason: atrial fibrillation History of present illness: Patient presented to the ED yesterday after feeling lightheaded and dizzy after cleaning the floor at home yesterday. She also felt nauseated, had jaw pain, and bilateral temporal pain that radiated towards her neck. She reported never experiencing anything like this before. Upon arrival at the ED, patient was noted to be in rapid atrial fibrillation. She was put on amiodarone drip and discontinued yesterday afternoon after she converted to sinus rhythm. She denies any prior history of atrial fibrillation. Patient recently had a right hip replacement about 2 weeks ago and has some post-surgical soreness in her right leg. She has a history of hyperlipidemia, osteoarthritis, spinal stenosis, bradycardia. She is an everyday smoker. She currently denied any fever, chills, nausea, vomiting, chest pain, shortness of breath in the room while being assessed. Her CBC showed WBC of 9.3, hemoglobin 11.3, hematocrit 34.6, platelet 560. CMP showed sodium 139, potassium 4.4, chloride 108, carbon dioxide 26, BUN 19, creatinine 0.79. Troponin was elevated at 0.126. Urinalysis was clear. Venous doppler done yesterday showed no evidence of DVT. Chest X ray was clear. Patient had a stress test done about 8 years ago which showed inconclusive results. Patient is scheduled to undergo a stress test tomorrow. Review of Systems All systems: negative (nausea, dizziness, lightheadedness, jaw pain, bilateral temporal pain during the episode) Past Medical History Past Medical History: Hyperlipidemia, Osteoarthritis (OA) Additional Past Medical History / Comment(s): spinal stenosis, bradycardia History of Any Multi-Drug Resistant Organisms: None Reported Past Surgical History: Appendectomy, Hysterectomy, Joint Replacement, Orthopedic Surgery, Tonsillectomy Additional Past Surgical History / Comment(s): varicose vein removal, bilateral cataract extraction, breast lump removal. bilateral carpal tunnel release, right anterior total hip. Lt. knee scope x 2 Past Anesthesia/Blood Transfusion Reactions: Postoperative Nausea & Vomiting (PONV) Additional Past Anesthesia/Blood Transfusion Reaction / Comment(s): patient had anesthesia on 02/10/16 for a cataract removal. afterwards became lightheaded, nauseous, and was found to be bradycardic. no problems w/ most recent surgery 2023 Past Psychological History: No Psychological Hx Reported Smoking Status: Current every day smoker Past Alcohol Use History: Rare Past Drug Use History: None Reported - Past Family History Father Family Medical History: AICD/Pacemaker, Congestive Heart Failure (CHF), COPD, Hyperlipidemia, Hypertension Additional Family Medical History / Comment(s): lived until age 95. CABG, pacemaker, seizures, neuropathy Mother Family Medical History: Dementia, Hyperlipidemia, Hypertension, Osteoarthritis (OA) Additional Family Medical History / Comment(s): lived until age 90. CABG, glaucoma Brother(s) Family Medical History: Hyperlipidemia Sister(s) Family Medical History: CVA/TIA, Hyperlipidemia Additional Family Medical History / Comment(s): loop recorder Medications and Allergies Home Medications Medication Instructions Recorded Confirmed Type Atorvastatin [Lipitor] 20 mg PO HS 05/12/18 02/14/24 History Brimonidine Tartrate [Alphagan P 1 drop RIGHT EYE BID 04/22/20 02/14/24 History 0.15% Ophth Soln] Acetaminophen [Tylenol Extra 2 tab PO BID PRN 01/25/24 02/14/24 History Strength] Brinzolamide [Brinzolamide 1% 1 drop RIGHT EYE BID 01/25/24 02/14/24 History Ophth Susp] Calcium Carbonate [Calcium] 600 mg PO DAILY 01/25/24 02/14/24 History Cholecalciferol [Vitamin D3 (25 1 tab PO DAILY 01/25/24 02/14/24 History Mcg = 1000 Iu)] Cranberry Fruit Extract [Cranberry] 200 mg PO Q48H 01/25/24 02/14/24 History Glucosamine HCl/Chondroitin Anaya 2 tab PO HS 01/25/24 02/14/24 History [Glucosamine-Chondroitin Cap] Maganese 1 tab PO DAILY 01/25/24 02/14/24 History Magnesium 250 mg PO DAILY 01/25/24 02/14/24 History Multivitamin [Multivitamins Adult 1 tab PO DAILY 01/25/24 02/14/24 History Gummies] Vitamin B Complex 1 tab PO DAILY 01/25/24 02/14/24 History Vitamin E (Dl,Tocopheryl Acet) 1 tab PO DAILY 01/25/24 02/14/24 History [Vitamin E (400 Iu = 180 mg)] HYDROcodone/APAP 7.5-325MG [[place] 1 tab PO Q6H PRN #28 tab 01/31/24 02/14/24 Rx 7.5-325] Apixaban [Eliquis] 2.5 mg PO BID #60 tab 02/16/24 Rx Allergies Allergy/AdvReac Type Severity Reaction Status Date / Time aspirin Allergy Unknown Verified 02/14/24 18:04 codeine Allergy Unknown Verified 02/14/24 18:04 metronidazole [From Flagyl] Allergy Itching Verified 02/14/24 18:04 Sulfa (Sulfonamide Allergy headache/ra Verified 02/14/24 18:04 Antibiotics) sh morphine AdvReac Vomiting Verified 02/14/24 18:04 Physical Exam Vitals: Vital Signs Temp Pulse Resp BP Pulse Ox 02/15/24 11:54 56 L 18 150/90 96 02/15/24 09:42 55 L 20 140/60 98 02/15/24 09:40 50 L 20 148/71 97 02/15/24 08:22 75 18 149/75 96 02/15/24 06:12 75 16 149/76 96 02/15/24 04:48 67 14 161/80 99 02/14/24 23:41 82 14 151/75 96 02/14/24 20:05 80 16 136/76 99 02/14/24 18:47 84 16 138/72 96 02/14/24 17:14 86 18 150/65 98 02/14/24 15:53 97.6 F 114 H 20 118/66 99 Intake and Output 02/14/24 02/15/24 02/15/24 22:59 06:59 14:59 Intake Total 3.5 Balance 3.5 Intake: Intake, IV Titration 3.5 Amount Diltiazem 125 mg In 3.5 Sodium Chloride 0.9% 100 ml @ 5 MG/HR 5 mls/hr IV .Q24H [facility] Rx#:[id number] Other: Weight 58.513 kg General: Alert and oriented, not in acute distress Cardiovascular: Regular heart rate, no murmurs Respiratory: Clear to auscultation bilaterally, no wheezing/rhonchi/stridor Abdominal: Soft, non-distended, non-tender to palpation Extremity: No LE edema Results 02/16/24 05:44 02/16/24 05:44 Cardiac Enzymes 02/14/24 02/14/24 02/14/24 Range/Units 16:34 16:34 20:30 AST 29 (14-36) U/L Troponin I <0.012 0.101 H* (0.000-0.034) ng/mL 02/14/24 Range/Units 23:32 AST (14-36) U/L Troponin I 0.126 H* (0.000-0.034) ng/mL Coagulation 02/14/24 02/15/24 Range/Units 16:34 10:18 PT 10.6 10.7 (10.0-12.5) sec APTT 28.6 27.9 (22.0-30.0) sec CBC 02/14/24 02/15/24 Range/Units 16:34 10:18 WBC 9.3 6.0 (3.8-10.6) k/uL RBC 3.65 L 3.46 L (3.80-5.40) m/uL Hgb 11.3 L 10.7 L (11.4-16.0) gm/dL Hct 34.6 33.5 L (34.0-46.0) % Plt Count 560 H D 528 H (150-450) k/uL Comprehensive Metabolic Panel 02/14/24 Range/Units 16:34 Sodium 139 (137-145) mmol/L Potassium 4.4 (3.5-5.1) mmol/L Chloride 108 H (98-107) mmol/L Carbon Dioxide 26 (22-30) mmol/L BUN 19 H (7-17) mg/dL Creatinine 0.79 (0.52-1.04) mg/dL Glucose 110 H (74-99) mg/dL Calcium 9.8 (8.4-10.2) mg/dL AST 29 (14-36) U/L ALT 18 (4-34) U/L Alkaline Phosphatase 103 (38-126) U/L Total Protein 6.9 (6.3-8.2) g/dL Albumin 4.2 (3.5-5.0) g/dL Current Medications Generic Name Dose Route Start Last Admin Trade Name Freq PRN Reason Stop Dose Admin Hydrocodone Bitart/Acetaminophen 1 each 02/14/24 18:19 02/15/24 04:46 Hydrocodone/Apap 7.5-325mg 1 Each Tab PO 1 each Q6H PRN Administration Pain Aminophylline 100 mg 02/16/24 07:00 Aminophylline 500 Mg/20 Ml Vial IV 02/16/24 14:00 ONCE PRN Patient Response Atorvastatin Calcium 20 mg 02/14/24 21:00 02/14/24 20:09 Atorvastatin 20 Mg Tab PO 20 mg HS CARINA Administration Caffeine Citrate 60 mg 02/16/24 07:00 Caffeine Citrate 60 Mg/3 Ml Vial IV 02/16/24 14:00 ONCE PRN Patient Response Heparin Sodium (Porcine) 0 unit 02/15/24 10:12 Heparin Sodium 1,000 Un/Ml (10ml Vl) IV PER PROTOCOL PRN Low PTT Protocol Diltiazem HCl 125 mg/ Sodium 125 mls @ 5 mls/hr 02/14/24 16:30 02/14/24 17:25 Chloride IV 0 mg/hr .Q24H CARINA 0 mls/hr Infusion 5 MG/HR Heparin Sodium/Sodium Chloride 250 mls @ 7.022 mls/hr 02/15/24 10:15 02/15/24 11:47 25,000 unit/ Sodium Chloride IV 12 units/kg/hr .Q24H CARINA 7.022 mls/hr Administration Protocol 12 UNITS/KG/HR Magnesium Oxide 400 mg 02/15/24 09:00 02/15/24 09:39 Magnesium Oxide 400 Mg Tab PO 400 mg DAILY CARINA Administration Naloxone HCl 0.2 mg 02/14/24 18:20 Naloxone 0.4 Mg/Ml 1 Ml Vial IV Q2M PRN Opioid Reversal Regadenoson 0.4 mg 02/16/24 07:00 Regadenoson 0.4 Mg/5 Ml Syringe IV 02/16/24 14:00 ONCE PRN Per Protocol Intake and Output 02/14/24 02/15/24 02/15/24 22:59 06:59 14:59 Intake Total 3.5 Balance 3.5 Intake: Intake, IV Titration 3.5 Amount Diltiazem 125 mg In 3.5 Sodium Chloride 0.9% 100 ml @ 5 MG/HR 5 mls/hr IV .Q24H [facility] Rx#:[id number] Other: Weight 58.513 kg 02/15/24 10:18 02/14/24 16:34 Assessment and Plan Assessment: 1. New Onset Atrial fibrillation with Rapid Ventricular Rate - Was noted to be in atrial fibrillation with RVR in the ED - Received Diltiazem drip, discontinued on 02/13 afternoon. - Currently on Heparin drip for anticoagulation 2. Rule out Pulmonary Embolism - Patient had recent right hip replacement surgery about 2 weeks ago - Venous doppler of LE showed no signs of DVT. - Will order D dimer 3. NSTEMI - Troponin elevated at 0.126 - Patient had inconclusive stress test results about 8 years ago - Will order another stress test scheduled for tomorrow - Will order echocardiogram. 4. Recent hip surgery 5. Anemia Time with Patient: Greater than 30
--- NOTE | 2024-02-15 16:01 | CT ---
CTA CHEST EXAMINATION TYPE: CT chest angio for PE DATE OF EXAM: 02/15/2024 INDICATION: Elevated D-dimer, rule out pulmonary embolism. recent hip sx. CT DLP: 307.1 mGycm, Automated exposure control for dose reduction was used. CONTRAST: Patient injected with 53ml mL of Isovue 370. COMPARISON: None TECHNIQUE: CT of the chest is performed on a spiral scan at 2 mm thick sections. Study is performed with intravenous contrast timed for evaluation for pulmonary embolism. This will limit additional po rtions of the evaluation. 3-D MIP images reconstructed by the technologist are reviewed on the compu ter in the coronal and sagittal planes. FINDINGS: No persistent filling defects are evident to suggest an acute pulmonary embolism. No mediastinal or hilar adenopathy enlarged by CT criteria is evident. The ascending aorta diameter at the level of the main pulmonary artery is 2.8 cm. The main pulmonary artery diameter at the bifurcation is 2.1 cm. Lung windows are clear. Limited CT sections were through the upper abdomen. Upper abdomen appears unremarkable. IMPRESSION: 1. No acute pulmonary embolism. 2. No acute pulmonary process [facility], Workstation: [facility], 02/15/2024 3:58 PM
--- NOTE | 2024-02-15 17:20 | CA ---
Transthoracic Echo Report Name: Jennifer Alva Age: 83 Gender: F : 1940 Exam Date: 02/15/2024 08:55 Exam Location: [facility] Ht (in): 60 Wt (lb): 129 Ordering Physician: Deacon Howard MD Attending/Referring Phys: [id number], Lee [employer] Dean Ida Gonzalez RDCS Procedure CPT: Indications: new onset a-fib Cardiac Hx: Technical Quality: Fair Contrast 1: Total Dose (mL): Contrast 2: Total Dose (mL): MEASUREMENTS (Male / Female) Normal Values 2D ECHO LV Diastolic Diameter PLAX 4.0 cm 4.2 - 5.9 / 3.9 - 5.3 cm LV Systolic Diameter PLAX 3.0 cm IVS Diastolic Thickness 1.2 cm 0.6 - 1.0 / 0.6 - 0.9 cm LVPW Diastolic Thickness 1.2 cm 0.6 - 1.0 / 0.6 - 0.9 cm LV Relative Wall Thickness 0.6 RV Internal Dim ED PLAX 1.4 cm LA Systolic Diameter LX 4.1 cm 3.0 - 4.0 / 2.7 - 3.8 cm LV Diastolic Volume MOD BP 44.2 cm??? 67 - 155 / 56 - 104 cm??? LV Systolic Volume MOD BP 21.6 cm??? 22 - 58 / 19 - 49 cm??? LV Ejection Fraction MOD BP 51.1 % >= 55 % LV Cardiac Index MOD BP 1081.2 cm???/min???m??? LV Diastolic Volume MOD 4C 48.7 cm??? LV Systolic Volume MOD 4C 23.3 cm??? LV Ejection Fraction MOD 4C 52.2 % LV Cardiac Index MOD 4C 1218.1 cm???/min???m??? LV Diastolic Length 4C 6.8 cm LV Systolic Length 4C 6.3 cm LV Diastolic Volume MOD 2C 40.3 cm??? LV Systolic Volume MOD 2C 18.9 cm??? LV Ejection Fraction MOD 2C 53.1 % LV Cardiac Index MOD 2C 1025.5 cm???/min???m??? LV Diastolic Length 2C 6.8 cm LV Systolic Length 2C 5.8 cm LA Volume 75.4 cm??? 18 - 58 / 22 - 52 cm??? LA Volume Index 47.5 cm???/m??? 16 - 28 cm???/m??? M-MODE Aortic Root Diameter MM 2.6 cm LA Systolic Diameter MM 3.7 cm LA Ao Ratio MM 1.4 AV Cusp Separation MM 1.5 cm DOPPLER AV Peak Velocity 175.7 cm/s AV Peak Gradient 12.3 mmHg MV Area PHT 2.9 cm??? Mitral E Point Velocity 91.6 cm/s Mitral A Point Velocity 101.8 cm/s Mitral E to A Ratio 0.9 MV Deceleration Time 265.2 ms TR Peak Velocity 260.6 cm/s TR Peak Gradient 27.2 mmHg Right Ventricular Systolic Press 31.0 mmHg FINDINGS Left Ventricle Left ventricular ejection fraction is estimated at 50-55%. Mildly increased septal wall thickness. Mildly increased posterior wall thickness. Mildly decreased left ventricular ejection fraction. Atypical Septal Motion, LBBB. Right Ventricle Normal right ventricular size and function. Right ventricular systolic pressure within normal limits. Right Atrium Moderate right atrial dilatation. Left Atrium Mildly increased left atrial diameter. Severely increased left atrial volume. Mildly increased left atrial area. Mitral Valve Structurally normal mitral valve. Moderate mitral regurgitation. No mitral stenosis. Aortic Valve Trileaflet aortic valve. No aortic valve stenosis or regurgitation. Tricuspid Valve Structurally normal tricuspid valve. [id number] tricuspid regurgitation. No tricuspid stenosis. Pulmonic Valve Structurally normal pulmonic valve. Trace pulmonic regurgitation. No pulmonic stenosis. Pericardium No pericardial or pleural effusion. Aorta Normal size aortic root and proximal ascending aorta. CONCLUSIONS Normal LV function Biatrial enlargement Moderate mitral regurgitation Mild to moderate tricuspid regurgitation Previewed by: Dr. Stewart Adhikari MD (Electronically Signed) Final Date: 15 February 2024 17:19
[2024-02-15 21:42] VITALS: RESP 18
--- NOTE | 2024-02-15 23:20 | P.HPIM ---
History of Present Illness H&P Date: 02/15/24 Chief Complaint: Dizziness and lightheadedness Patient is a 83-year-old female with a past medical history of hyperlipidemia, osteoarthritis, spinal stenosis and currently everyday smoker presents to ER with complaints of dizziness and lightheadedness. Patient was also complaining of headache and also tightness in her jaw also radiating to the neck. Patient was found to be in atrial fibrillation with regular rate in the ER. Patient had right total hip arthroplasty on 01/31/2024. Currently on anticoagulation in the form of Eliquis for DVT prophylaxis. Denied any palpitations. No complaints of chest pain. Denied any nausea or vomiting. No cough or sputum production. Denied any fever or chills. EKG showed atrial fibrillation with rapid regular response and heart rate 125 Lower extremity duplex scan with negative DVT. Chest x-ray showed no acute cardiopulmonary process. Laboratory data showed WBC 9.3 hemoglobin 11.3 and platelets 560 D-dimer 2.56 Sodium 139 potassium 4.4 chloride 108 bicarb is 26 BUN 19 and creatinine 0.79 and blood sugar 110 Troponin 0.012, 0.101 and 0.126 Urinalysis is negative for infection. Review of Systems Constitutional: Patient denies any fever or chills . No generalized weakness or weight loss. Abdomen: Patient denied nausea vomiting and diarrhea and abdominal pain. Cardiovascular: Patient denies any chest pain or short of breath no palpitations. Jaw pain/tightness and neck pain. Respiratory: patient denied any cough or sputum production. No shortness of breath Neurologic: Patient denied any numbness or tingling. Complains of headache. Musculoskeletal: Patient denies any complaints of joint swelling or deformity. Skin: Negative Psychiatric: Negative Endocrine: No heat or cold intolerance. No recent weight gain. Genitourinary: No dysuria or hematuria. All other 14 point ROS negative except the above Past Medical History Past Medical History: Hyperlipidemia, Osteoarthritis (OA) Additional Past Medical History / Comment(s): spinal stenosis, bradycardia History of Any Multi-Drug Resistant Organisms: None Reported Past Surgical History: Appendectomy, Hysterectomy, Joint Replacement, Orthopedic Surgery, Tonsillectomy Additional Past Surgical History / Comment(s): varicose vein removal, bilateral cataract extraction, breast lump removal. bilateral carpal tunnel release, right anterior total hip. Lt. knee scope x 2 Past Anesthesia/Blood Transfusion Reactions: Postoperative Nausea & Vomiting (PONV) Additional Past Anesthesia/Blood Transfusion Reaction / Comment(s): patient had anesthesia on 02/10/16 for a cataract removal. afterwards became lightheaded, nauseous, and was found to be bradycardic. no problems w/ most recent surgery 2023 Past Psychological History: No Psychological Hx Reported Smoking Status: Current every day smoker Past Alcohol Use History: Rare Past Drug Use History: None Reported - Past Family History Father Family Medical History: AICD/Pacemaker, Congestive Heart Failure (CHF), COPD, Hyperlipidemia, Hypertension Additional Family Medical History / Comment(s): lived until age 95. CABG, pacemaker, seizures, neuropathy Mother Family Medical History: Dementia, Hyperlipidemia, Hypertension, Osteoarthritis (OA) Additional Family Medical History / Comment(s): lived until age 90. CABG, glaucoma Brother(s) Family Medical History: Hyperlipidemia Sister(s) Family Medical History: CVA/TIA, Hyperlipidemia Additional Family Medical History / Comment(s): loop recorder Medications and Allergies Home Medications Medication Instructions Recorded Confirmed Type Atorvastatin [Lipitor] 20 mg PO HS 05/12/18 02/14/24 History Brimonidine Tartrate [Alphagan P 1 drop RIGHT EYE BID 04/22/20 02/14/24 History 0.15% Ophth Soln] Acetaminophen [Tylenol Extra 2 tab PO BID PRN 01/25/24 02/14/24 History Strength] Brinzolamide [Brinzolamide 1% 1 drop RIGHT EYE BID 01/25/24 02/14/24 History Ophth Susp] Calcium Carbonate [Calcium] 600 mg PO DAILY 01/25/24 02/14/24 History Cholecalciferol [Vitamin D3 (25 1 tab PO DAILY 01/25/24 02/14/24 History Mcg = 1000 Iu)] Cranberry Fruit Extract [Cranberry] 200 mg PO Q48H 01/25/24 02/14/24 History Glucosamine HCl/Chondroitin [place] 2 tab PO HS 01/25/24 02/14/24 History [Glucosamine-Chondroitin Cap] Maganese 1 tab PO DAILY 01/25/24 02/14/24 History Magnesium 250 mg PO DAILY 01/25/24 02/14/24 History Multivitamin [Multivitamins Adult 1 tab PO DAILY 01/25/24 02/14/24 History Gummies] Vitamin B Complex 1 tab PO DAILY 01/25/24 02/14/24 History Vitamin E (Dl,Tocopheryl Acet) 1 tab PO DAILY 01/25/24 02/14/24 History [Vitamin E (400 Iu = 180 mg)] HYDROcodone/APAP 7.5-325MG [[place] 1 tab PO Q6H PRN #28 tab 01/31/24 02/14/24 Rx 7.5-325] Apixaban [Eliquis] 2.5 mg PO BID 30 Days #60 tab 02/01/24 02/14/24 Rx Allergies Allergy/AdvReac Type Severity Reaction Status Date / Time aspirin Allergy Unknown Verified 02/14/24 18:04 codeine Allergy Unknown Verified 02/14/24 18:04 metronidazole [From Flagyl] Allergy Itching Verified 02/14/24 18:04 Sulfa (Sulfonamide Allergy headache/ra Verified 02/14/24 18:04 Antibiotics) sh morphine AdvReac Vomiting Verified 02/14/24 18:04 Physical Exam Vitals: Vital Signs Temp Pulse Resp BP Pulse Ox 02/15/24 09:42 55 L 20 140/60 98 02/15/24 09:40 50 L 20 148/71 97 02/15/24 08:22 75 18 149/75 96 02/15/24 06:12 75 16 149/76 96 02/15/24 04:48 67 14 161/80 99 02/14/24 23:41 82 14 151/75 96 02/14/24 20:05 80 16 136/76 99 02/14/24 18:47 84 16 138/72 96 02/14/24 17:14 86 18 150/65 98 02/14/24 15:53 97.6 F 114 H 20 118/66 99 Intake and Output 02/14/24 02/15/24 02/15/24 22:59 06:59 14:59 Intake Total 3.5 Balance 3.5 Intake: Intake, IV Titration 3.5 Amount Diltiazem 125 mg In 3.5 Sodium Chloride 0.9% 100 ml @ 5 MG/HR 5 mls/hr IV .Q24H [facility] Rx#:[id number] Other: Weight 58.513 kg PHYSICAL EXAMINATION: Patient is lying in the bed comfortably, no acute distress, awake alert and oriented.. HEENT: Normocephalic. Neck is supple. Pupils reactive. Nostrils clear. Oral cavity is moist. Neck reveals no JVD, carotid bruits, or thyromegaly. CHEST EXAMINATION: Trachea is central. Symmetrical expansion. Lung roth clear to auscultation and percussion. CARDIAC: Normal S1, S2 with no gallops. No murmurs, irregular rhythm. ABDOMEN: Soft. Bowel sounds normal. No organomegaly. No abdominal bruits. Extremities: reveal no edema. No clubbing or cyanosis Neurologically awake, alert, oriented x3 with well-coordinated movements. No focal deficits noted Skin: No rash or skin lesions. Psychiatric: Coperative. Nonsuicidal Musculoskeletal: No joint swelling or deformity. Normal range of motion. Results CBC & Chem 7: 02/15/24 10:18 02/14/24 16:34 Labs: Abnormal Lab Results - Last 24 Hours (Table) 02/14/24 02/14/24 02/14/24 Range/Units 16:34 16:34 20:30 RBC 3.65 L (3.80-5.40) m/uL Hgb 11.3 L (11.4-16.0) gm/dL Plt Count 560 H D (150-450) k/uL Chloride 108 H (98-107) mmol/L BUN 19 H (7-17) mg/dL Glucose 110 H (74-99) mg/dL Troponin I 0.101 H* (0.000-0.034) ng/mL 02/14/24 Range/Units 23:32 RBC (3.80-5.40) m/uL Hgb (11.4-16.0) gm/dL Plt Count (150-450) k/uL Chloride (98-107) mmol/L BUN (7-17) mg/dL Glucose (74-99) mg/dL Troponin I 0.126 H* (0.000-0.034) ng/mL Thrombosis Risk Factor Assmnt - DVT/VTE Prophylaxis DVT/VTE Prophylaxis: Pharmacologic Prophylaxis ordered Assessment and Plan Assessment: New onset atrial fibrillation with rapid ventricular response Elevated troponin level possible demand mismatch/type II MD Recent right total hip arthroplasty on 01/31/2024 currently on anticoagulation with Eliquis. Elevated D-dimer level rule out PE. Lower extremity blood scan is negative for DVT. Uncontrolled hypertension Hyperlipidemia Plan: Patient will be continued on telemonitoring. Patient was started on Cardizem drip and heparin drip for anticoagulation. Currently Cardizem drip has been discontinued. Heart rate is better controlled. TSH within normal limits. Current with home medications and pain management and follow-up closely. Cardiology is on board. Planning for stress test tomorrow. CT angiogram showed pulmonary embolism due to elevated D-dimer level. Otherwise patient is currently on room air. Time with Patient: Greater than 30
[2024-02-16 06:32] LABS: Basophils % (A) 0 %; Eosinophils # (A) 0.2 k/uL (0-0.7); Eosinophils % (A) 4 %; HCT 32.6 % (34.0-46.0); HGB 10.7 gm/dL (11.4-16.0); Lymphocytes # (A) 2.3 k/uL (1.0-4.8); Lymphocytes % (A) 36 %; MCH 31.4 pg (25.0-35.0); MCHC 32.9 g/dL (31.0-37.0); MCV 95.4 fL (80.0-100.0); Mean Platelet Volume 8.1; Monocytes # (A) 0.4 k/uL (0-1.0); Monocytes % (A) 6 %; Neutrophils # (A) 3.2 k/uL (1.3-7.7); Neutrophils % (A) 51 %; Platelet Count 488 k/uL (150-450); RBC 3.42 m/uL (3.80-5.40); RDW 14.3 % (11.5-15.5); WBC 6.4 k/uL (3.8-10.6)
[2024-02-16 06:33] LABS: African American GFR (CKD) >90 (>60 ml/min/1.73 sqM); Anion Gap 1 mmol/L; Blood Urea Nitrogen 16 mg/dL (7-17); Calcium 9.5 mg/dL (8.4-10.2); Carbon Dioxide 26 mmol/L (22-30); Chloride 113 mmol/L (98-107); Glucose 84 mg/dL (74-99); Non-African American GFR(CKD) 81 (>60 ml/min/1.73 sqM); Potassium 5.2 mmol/L (3.5-5.1); Sodium 140 mmol/L (137-145)
[2024-02-16 06:36] LABS: Partial Thromboplastin Time 47.2 sec (22.0-30.0); Prothrombin Time 10.8 sec (10.0-12.5)
[2024-02-16] MEDS ORDERED: CAFFEINE CITRATE 60 MG/3 ML VIAL IV PRN (07:00)
[2024-02-16] MEDS ORDERED: AMINOPHYLLINE 500 MG/20 ML VIAL IV PRN (07:00)
[2024-02-16] MEDS ORDERED: REGADENOSON 0.4 MG/5 ML SYRINGE IV PRN (07:00)
[2024-02-16] MEDS ORDERED: REGADENOSON 0.4 MG/5 ML SYRINGE IV ONE (08:00)
[2024-02-16] MEDS ORDERED: AMINOPHYLLINE 500 MG/20 ML VIAL IV ONE (10:10)
[2024-02-16] MEDS: BRIMONIDINE TARTRATE 0.2% DROPS 5 ML BTL RIGHT EYE SCH (11:45)
[2024-02-16] MEDS: DORZOLAMIDE HCL 2% DROPS 10 ML BTL RIGHT EYE SCH (11:45)
[2024-02-16] MEDS: INSULIN REGULAR 100 UNIT/ML VIAL (IV) IV ONE (11:58)
[2024-02-16] MEDS: DEXTROSE 50% SYRINGE 50 ML IVP STA (11:58)
[2024-02-16] MEDS: NON FORMULARY DRUG (Brimonidine Tartrate 15 DROPS/ML Ml) RIGHT EYE SCH (12:06)
[2024-02-16 13:07] VITALS: BP 149/65; PULSE 75; TEMP 98.1
--- NOTE | 2024-02-16 13:40 | NM ---
EXAMINATION TYPE: NM stress lexiscan cardiolite DATE OF EXAM: 02/16/2024 COMPARISON: NONE CLINICAL INDICATION: Female, 83 years old with history of abnormal trops; TECHNIQUE: After the intravenous administration of 10.4 mCi Tc 99m Sestamibi - Cardiolite resting SP ECT images acquired 90 minutes post injection. The patient received 0.4mg Lexiscan, 26.2 mCi Tc 99m Sestamibi - Stress images obtained [address] injection FINDINGS: Review of stress and rest SPECT images demonstrates no distinct perfusion abnormality. Gated analysi s shows normal wall motion with an estimated left ventricular ejection fraction of 55 %. IMPRESSION: No scintigraphic evidence for reversible ischemia. [facility], , 02/16/2024 1:38 PM
--- NOTE | 2024-02-16 13:45 | CA ---
Lexiscan Nuclear Stress Test Report Name: Jennifer Alva Exam Date: 02/16/2024 09:50 Exam Location: [facility] Stress Ht (in): 60 Wt (lb): 129 BSA: 1.55 Ordering Phys: Marisol Pettit Referring Phys: LEEANNE,, Technologist: JUAN DIEGO,, Age: 83 Gender: F : 1940 Procedure CPT: Indications: Reflex order-Stress test, Chest pain, unspecified ICD-10 Codes: R079 Patient History: Vertigo, hyperlipidemia and family history of heart disease. Medications: Meds past 24 hrs: Pretest Chest Pain: STRESS TEST Lexiscan Protocol Exercise Duration (min:sec): 01:[address] Depressions (mm): Angina Score: Gaming Score: Resting HR (bpm): 63 Peak HR (bpm): 88 Resting BP (mmHg): 151 / 68 Peak BP (mmHg): 162 / 61 MPHR: 136 Target HR: 116 % MPHR: 65 METS: 1.0 Total Dose: Peak Dose: Atropine: Double Product: 07181 BP Response: Stress Termination: INFUSION COMPLETE Stress Symptoms: CHEST TIGHTNESS,STOMACH ACHE,HEADACHE Stress Summary: ECG ANALYSIS Resting ECG: Stress ECG: CONCLUSIONS RESTING EKG: Sinus rhythm left bundle branch block, Heart rate 63 BPM Patient recieved IV infusion of Lexiscan 0.4mg and at peak infusion STRESS EKG showed: Nondiagnostic because of resting left bundle branch block ARRYTHMIAS: [No ectopic rhythms or sustained arrythmias] CONCLUSION: 1. Normal hemodynamic and clinical response to Lexiscan infusion. 2. ECG is nondiagnostic because of resting left bundle branch block Please refer to the nuclear imaging portion of this stress test for complete interpretation of the study. Dr Steve Al (Electronically Signed) Final Date: 16 February 2024 13:44
[2024-02-16] MEDS: APIXABAN 2.5 MG TABLET PO SCH (15:34)
--- NOTE | 2024-02-16 16:59 | P.PN ---
Subjective HISTORY OF PRESENTING ILLNESS Patient presented to the ED yesterday after feeling lightheaded and dizzy after cleaning the floor at home yesterday. She also felt nauseated, had jaw pain, and bilateral temporal pain that radiated towards her neck. She reported never experiencing anything like this before. Upon arrival at the ED, patient was noted to be in rapid atrial fibrillation. She was put on amiodarone drip and discontinued yesterday afternoon after she converted to sinus rhythm. She denies any prior history of atrial fibrillation. Patient recently had a right hip replacement about 2 weeks ago and has some post-surgical soreness in her right leg. She has a history of hyperlipidemia, osteoarthritis, spinal stenosis, bradycardia. She is an everyday smoker. She currently denied any fever, chills, nausea, vomiting, chest pain, shortness of breath in the room while being assessed. Her CBC showed WBC of 9.3, hemoglobin 11.3, hematocrit 34.6, platelet 560. CMP showed sodium 139, potassium 4.4, chloride 108, carbon dioxide 26, BUN 19, creatinine 0.79. Troponin was elevated at 0.126. Urinalysis was clear. Venous doppler done yesterday showed no evidence of DVT. Chest X ray was clear. Patient had a stress test done about 8 years ago which showed inconclusive results. Patient is scheduled to undergo a stress test tomorrow. 02/15 Patient seen and examined. Patient feeling better. Denies any further chest pain or pressure. Is concerned with expensive anticoagulation however does not want to use Coumadin. D-dimer was elevated and therefore CTA was performed which showed no PE. Lexiscan stress test shows no inducible ischemia. PHYSICAL EXAMINATION Vital signs reviewed. CONSTITUTIONAL: No apparent distress. HEENT: Head is normocephalic. Pupils are equal, round. Sclerae anicteric. Mucous membranes of the mouth are moist. No JVD. No carotid bruit. CHEST EXAMINATION: Lungs are clear to auscultation. No chest wall tenderness is noted on palpation or with deep breathing. HEART EXAMINATION: Regular rate and rhythm. S1, S2 heard. No murmurs, gallops or rub. ABDOMEN: Soft, nontender. Positive bowel sounds. EXTREMITIES: 2+ peripheral pulses, no lower extremity edema and no calf tenderness. NEUROLOGIC EXAMINATION: Patient is awake, alert and oriented x3. ASSESSMENT/PLAN 1. New Onset Atrial fibrillation with Rapid Ventricular Rate - Was noted to be in atrial fibrillation with RVR in the ED - Received Diltiazem drip, discontinued on 02/13 afternoon. - Eliquis 2.5mg bid given age and weight. If further episodes consider rhythm control 2. Elevated Ddimer - Patient had recent right hip replacement surgery about 2 weeks ago - No PE on CTA 3. NSTEMI - Troponin elevated at 0.126 - Likely type 2 related to Afib, no ischemia on Lexiscan 4. Recent hip surgery 5. Anemia Objective - Vital Signs Vital signs: Vital Signs Temp 98.1 F 02/16/24 13:06 Pulse 75 02/16/24 14:17 Resp 18 02/16/24 14:17 BP 149/65 02/16/24 13:06 Pulse Ox 96 02/16/24 13:06 FiO2 Intake & Output 02/15/24 02/16/24 02/16/24 18:59 06:59 18:59 Intake Total 132.04 190.635 Balance 132.04 190.635 Weight 58.513 kg 58.6 kg Intake: Intake, IV Titration 14.04 190.635 Amount Heparin Sod,Pork in 0.45% 14.04 190.635 NaCl 25,000 unit In 0.45 % NaCl 1 250ml.bag @ 12 UNITS/KG/HR 7.022 mls/hr IV .Q24H [facility] Rx#: [id number] Oral 118 Other: # Voids 1 - Labs CBC & Chem 7: 02/16/24 05:44 02/16/24 05:44 Labs: Abnormal Lab Results - Last 24 Hours (Table) 02/15/24 02/16/24 02/16/24 Range/Units 16:38 05:44 05:44 RBC 3.42 L (3.80-5.40) m/uL Hgb 10.7 L (11.4-16.0) gm/dL Hct 32.6 L (34.0-46.0) % Plt Count 488 H (150-450) k/uL APTT 45.9 H 47.2 H (22.0-30.0) sec Potassium (3.5-5.1) mmol/L Chloride (98-107) mmol/L 02/16/24 Range/Units 05:44 RBC (3.80-5.40) m/uL Hgb (11.4-16.0) gm/dL Hct (34.0-46.0) % Plt Count (150-450) k/uL APTT (22.0-30.0) sec Potassium 5.2 H (3.5-5.1) mmol/L Chloride 113 H (98-107) mmol/L
== END 2024-02-16 16:25 | disposition home or self-care (01) | DRG 282 ==
LOC: EC 15:49 → 3SCARD 18:21 → OBSVTOIN 18:22 → 3SCARD 18:44
PROVIDERS: ADMIT Hospitalist; ATTEND Hospitalist
PROC: 3E033RZ Introduction of Antiarrhythmic into Peripheral Vein, Percutaneous Approach (ICD-10-PCS; principal; 2024-02-14)
DX: I48.91 Unspecified atrial fibrillation (principal); I21.A1 Myocardial infarction type 2; E78.5 Hyperlipidemia, unspecified; M19.90 Unspecified osteoarthritis, unspecified site; M48.00 Spinal stenosis, site unspecified; R00.1 Bradycardia, unspecified; D64.9 Anemia, unspecified; F17.200 Nicotine dependence, unspecified, uncomplicated; I10 Essential (primary) hypertension; R79.1 Abnormal coagulation profile; Z96.641 Presence of right artificial hip joint; Z82.49 Family history of ischemic heart disease and other diseases of the circulatory system; Z79.01 Long term (current) use of anticoagulants; Z88.5 Allergy status to narcotic agent; Z88.2 Allergy status to sulfonamides; Z88.6 Allergy status to analgesic agent; Z88.1 Allergy status to other antibiotic agents; Z79.899 Other long term (current) drug therapy
CPT/HCPCS: 36415; 71046; 71275; 78452; 80048; 80053; 81003; 82272; 83735; 84443; 84484; 85025; 85379; 85610; 85730; 93005; 93017; 93306; 96361; 96365; 96366; 96375; 99291